=== PATIENT | male | born 1955 | race Caucasian/White ===

== ENCOUNTER 2017-11-23 13:38 | Emergency (ER) | payer MEDICARE, MEDICAID, SELFPAY ==
[2017-11-23 13:42] VITALS: BP 138/79; PULSE 85; RESP 15; TEMP 36.2; O2SAT 100; BMI 28.4
--- NOTE | 2017-11-23 14:51 | ED_ITS ---
HPI - Abdominal Pain <Tahira Zuleta PA-C - Last Filed: 11/23/17 20:48> General Chief Complaint: Abdominal Pain Stated Complaint: WHITE CHALKY STOOL COUPLE OF DAYS Time Seen by Provider: 11/23/17 14:49 Source: patient Mode of arrival: ambulatory Limitations: no limitations History of Present Illness HPI narrative: This 62-year-old male comes in due to 2 day history of a very light escobedo stool. He describes this as chalky. He denies any mucus or blood in the stool. He denies any abdominal pain, nausea, vomiting, or fever, but states that he feels slightly bloated. He states ?I feel perfect?. He states that 1 week ago, he and some friends had vomiting and diarrhea that just lasted a day or so and completely resolved. He has been back to his usual diet and activity. He denies any urinary symptoms or other new complaints on systems review, but is concerned about his gallbladder. Stool sample he produces is light brown/escobedo, solid, with patchy pasty discoloration Related Data Allergies Allergy/AdvReac Type Severity Reaction Status Date / Time No Known Allergies Allergy Uncoded 11/23/17 13:42 Review of Systems <Tahira Zuleta PA-C - Last Filed: 11/23/17 20:48> Review of Systems All systems reviewed & are unremarkable except as noted in HPI and below Exam <Tahira Zuleta PA-C - Last Filed: 11/23/17 20:48> Narrative Exam Narrative: GENERAL APPEARANCE: Patient sitting comfortably, in no distress. HEENT: PERRL, EOMI, no scleral icterus NECK: Supple LUNGS: Clear to auscultation bilaterally. HEART: Rate and rhythm regular, normal S1 and S2, no S3 or S4. ABDOMEN: Soft, nontender, nondistended, bowel sounds present x 4 quadrants, no masses palpable, no hepatosplenomegaly. EXTREMITIES: No edema, no cyanosis DERMATOLOGIC: No jaundice or exanthem NEUROLOGIC: Alert and oriented with normal speech and coordination Initial Vital Signs Initial Vital Signs: Vital Signs Temperature 97.2 F L 11/23/17 13:42 Pulse Rate 85 11/23/17 13:42 Respiratory Rate 15 11/23/17 13:42 Blood Pressure 138/79 H 11/23/17 13:42 Pulse Oximetry 100 11/23/17 13:42 <DO Joshua Pizarro Last Filed: 11/25/17 14:43> Initial Vital Signs Initial Vital Signs: Vital Signs Temperature 97.2 F L 11/23/17 13:42 Pulse Rate 85 11/23/17 13:42 Respiratory Rate 15 11/23/17 13:42 Blood Pressure 138/79 H 11/23/17 13:42 Pulse Oximetry 100 11/23/17 13:42 Course <CHETAN Hall Last Filed: 11/23/17 20:48> Orders Ordered: ED Orders 11/23/17 15:12 Complete Blood Count AUTO DIFF Stat Comprehensive Metabolic Panel Stat Lipase Stat Vital Signs - 8 hr 11/23/17 13:42 11/23/17 16:06 Temperature 97.2 F L Pulse Rate 85 77 Respiratory Rate 15 15 Blood Pressure 138/79 H Blood Pressure [Left Arm] 125/77 H Pulse Oximetry 100 97 <DO Joshua Pizarro Last Filed: 11/25/17 14:43> Orders Ordered: ED Orders 11/23/17 15:12 Complete Blood Count AUTO DIFF Stat Comprehensive Metabolic Panel Stat Lipase Stat Vital Signs - 8 hr 11/23/17 13:42 11/23/17 16:06 Temperature 97.2 F L Pulse Rate 85 77 Respiratory Rate 15 15 Blood Pressure 138/79 H Blood Pressure [Left Arm] 125/77 H Pulse Oximetry 100 97 MDM - Abdominal Pain <CHETAN Hall Last Filed: 11/23/17 20:48> Lab Data Attestation: I reviewed the patient's lab results. Result diagrams: 11/23/17 15:12 11/23/17 15:12 Lab Results 11/23/17 11/23/17 Range/Units 15:12 15:12 WBC 8.5 (4.5-11.0) X10^3/uL RBC 5.31 (4.5-5.9) X10^6/uL Hgb 15.9 (13.5-17.5) g/dL Hct 47.0 (41-53) % MCV 88.5 (80-100) fL MCH 30.0 (26-34) PG MCHC 33.9 (30-36) % RDW 13.2 (11.6-14.8) % Plt Count 184 (150-400) X10^3/uL Neut % (Auto) 72.0 (50-75) % Lymph % (Auto) 21.2 L (25-40) % [place] % (Auto) 5.7 (3-14) % Eos % (Auto) 0.7 L (2-4) % Baso % (Auto) 0.4 (0-2) % Neut # (Auto) 6100 H (0207-9201) /uL Sodium 145 (137-145) mmol/L Potassium 4.7 (3.4-5.1) mmol/L Chloride 109 H (98-107) mmol/L Carbon Dioxide 22 (22-32) mmol/L BUN 20 (9-20) mg/dL Creatinine 0.80 (0.66-1.25) mg/dL Estimated GFR > 60.0 (>60) mL/min BUN/Creatinine Ratio 25.0 H (6-22) Glucose 154 H (80-110) mg/dL Calcium 9.3 (8.4-10.2) mg/dL Total Bilirubin 0.5 (0.2-1.3) mg/dL AST 27 (17-59) IU/L ALT 53 (21-72) IU/L Alkaline Phosphatase 103 (38-126) U/L Total Protein 7.3 (6.3-8.2) g/dL Albumin 4.3 (3.5-5.0) g/dL Globulin 3.0 (1.7-4.1) g/dL Albumin/Globulin Ratio 1.4 (1.0-2.8) Lipase 44 (23-300) U/L <Beckie Stephens, DO - Last Filed: 11/25/17 14:43> Lab Data Lab Results 11/23/17 11/23/17 Range/Units 15:12 15:12 WBC 8.5 (4.5-11.0) X10^3/uL RBC 5.31 (4.5-5.9) X10^6/uL Hgb 15.9 (13.5-17.5) g/dL Hct 47.0 (41-53) % MCV 88.5 (80-100) fL MCH 30.0 (26-34) PG MCHC 33.9 (30-36) % RDW 13.2 (11.6-14.8) % Plt Count 184 (150-400) X10^3/uL Neut % (Auto) 72.0 (50-75) % Lymph % (Auto) 21.2 L (25-40) % [place] % (Auto) 5.7 (3-14) % Eos % (Auto) 0.7 L (2-4) % Baso % (Auto) 0.4 (0-2) % Neut # (Auto) 6100 H (9111-6809) /uL Sodium 145 (137-145) mmol/L Potassium 4.7 (3.4-5.1) mmol/L Chloride 109 H (98-107) mmol/L Carbon Dioxide 22 (22-32) mmol/L BUN 20 (9-20) mg/dL Creatinine 0.80 (0.66-1.25) mg/dL Estimated GFR > 60.0 (>60) mL/min BUN/Creatinine Ratio 25.0 H (6-22) Glucose 154 H (80-110) mg/dL Calcium 9.3 (8.4-10.2) mg/dL Total Bilirubin 0.5 (0.2-1.3) mg/dL AST 27 (17-59) IU/L ALT 53 (21-72) IU/L Alkaline Phosphatase 103 (38-126) U/L Total Protein 7.3 (6.3-8.2) g/dL Albumin 4.3 (3.5-5.0) g/dL Globulin 3.0 (1.7-4.1) g/dL Albumin/Globulin Ratio 1.4 (1.0-2.8) Lipase 44 (23-300) U/L Discharge Plan Departure Patient Disposition: Home, Self-Care Clinical Impression: Abnormal feces Discharge Date/Time: 11/23/17 16:40 Interventions: ED Discharge Assessment Last Done: 11/23/17 16:40 Activity Restrictions/Additional Instructions: There are no urgent findings on your blood work today, nor on your exam to suggest an acute gallbladder problem. Please monitor your stool for the next few days to see if it gets back to normal since you seem to have an intestinal virus last week. Stay on your usual diet. If not getting back to normal, please call your insurance for a referral to a primary care provider to do further testing. As we talked about, please return here if any acute symptoms such as fever or new pain in the interim <Beckie Stephens, - Last Filed: 11/25/17 14:43> Cosign ED Attending Dinahature Attestation: I was immediately available in the department for consultation. Documentation has been reviewed. I agree with assessment and plan.
[2017-11-23 15:27] LABS: Add Manual Diff / Slide Review NO; Basophils Percent Auto 0.4 % (0-2); Eosinophils Percent Auto 0.7 % (2-4); Hemoglobin 15.9 g/dL (13.5-17.5); Lymphocytes Percent Auto 21.2 % (25-40); Mean Corpuscular HGB Conc 33.9 % (30-36); Mean Corpuscular Volume 88.5 fL (80-100); Monocytes Percent Auto 5.7 % (3-14); Neutrophils Absolute Auto 6100 /uL (3000-5900); Platelet Count 184 X10^3/uL (150-400); Red Blood Cell Count 5.31 X10^6/uL (4.5-5.9); Red Cell Distribution Width 13.2 % (11.6-14.8); White Blood Cell Count 8.5 X10^3/uL (4.5-11.0)
[2017-11-23 15:37] LABS: Alanine Aminotransferase 53 IU/L (21-72); Albumin 4.3 g/dL (3.5-5.0); Albumin Globulin Ratio 1.4 (1.0-2.8); Alkaline Phosphatase 103 U/L (38-126); Aspartate Aminotransferase 27 IU/L (17-59); Bilirubin Total 0.5 mg/dL (0.2-1.3); Blood Urea Nitrogen 20 mg/dL (9-20); Calcium 9.3 mg/dL (8.4-10.2); Carbon Dioxide 22 mmol/L (22-32); Chloride 109 mmol/L (98-107); Estimated Glomerular Filt Rate > 60.0 mL/min (>60); Glucose 154 mg/dL (80-110); HEMOLYSIS 25 (0-50); Lipase 44 U/L (23-300); Potassium 4.7 mmol/L (3.4-5.1); Sodium 145 mmol/L (137-145); Total Protein 7.3 g/dL (6.3-8.2)
[2017-11-23 16:06] VITALS: BP 125/77; PULSE 77; RESP 15; O2SAT 97
== END 2017-11-23 16:40 | disposition home or self-care (01) ==
PROVIDERS: Emergency Provider Internal Medicine
DX: R19.5 Other fecal abnormalities (principal)
CPT/HCPCS: 80053; 83690; 85025; 99283

== ENCOUNTER 2018-03-18 15:40 | Emergency (ER) | payer MEDICARE, MEDICAID, SELFPAY ==
[2018-03-18 15:54] VITALS: BP 181/91; PULSE 93; RESP 18; TEMP 36.7; O2SAT 100
--- NOTE | 2018-03-18 16:03 | DI.RAD.S_ITS ---
PROCEDURE: XR CHEST 1V INDICATIONS: chest pain TECHNIQUE: One view of the chest was acquired. COMPARISON: [facility], , CHEST 2 VIEW, 01/31/2009, 13:58. FINDINGS: Surgical changes and devices: None. Lungs and pleura: No pleural effusions or pneumothorax. Lungs are clear. Mediastinum: Mediastinal contours appear normal. Heart size is normal. Bones and chest wall: No suspicious bony lesions. Overlying soft tissues appear unremarkable. IMPRESSION: No acute cardiopulmonary pathology. Dictated by: Mahad Moralez M.D. on 03/18/2018 at 16:26 Approved by: Mahad Moralez M.D. on 03/18/2018 at 16:30
[2018-03-18 16:17] VITALS: BP 154/114; PULSE 87; RESP 14; O2SAT 98
[2018-03-18 16:24] LABS: Add Manual Diff / Slide Review NO; Basophils Percent Auto 0.6 % (0-2); Eosinophils Percent Auto 0.1 % (2-4); Hematocrit 44.8 % (41-53); Hemoglobin 15.2 g/dL (13.5-17.5); Lymphocytes Percent Auto 14.8 % (25-40); Mean Corpuscular Hemoglobin 30.1 PG (26-34); Mean Corpuscular Volume 88.5 fL (80-100); Monocytes Percent Auto 4.7 % (3-14); Neutrophils Absolute Auto 8300 /uL (3000-5900); Neutrophils Percent Auto 79.8 % (50-75); Platelet Count 197 X10^3/uL (150-400); Red Blood Cell Count 5.06 X10^6/uL (4.5-5.9); Red Cell Distribution Width 13.4 % (11.6-14.8); White Blood Cell Count 10.4 X10^3/uL (4.5-11.0)
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
[2018-03-18 16:29] LABS: Prothrombin Time 11.4 SECONDS (10.1-12.7)
[2018-03-18 16:32] VITALS: BP 170/96; PULSE 84; RESP 17; O2SAT 100
[2018-03-18 16:32] LABS: Alanine Aminotransferase 34 IU/L (21-72); Albumin 4.5 g/dL (3.5-5.0); Albumin Globulin Ratio 1.6 (1.0-2.8); Alkaline Phosphatase 101 U/L (38-126); Aspartate Aminotransferase 24 IU/L (17-59); Bilirubin Total 0.4 mg/dL (0.2-1.3); Blood Urea Nitrogen 16 mg/dL (9-20); Calcium 9.2 mg/dL (8.4-10.2); Carbon Dioxide 22 mmol/L (22-32); Chloride 108 mmol/L (98-107); Creatine Kinase 160 U/L (55-170); Estimated Glomerular Filt Rate > 60.0 mL/min (>60); Globulin 2.8 g/dL (1.7-4.1); Glucose 111 mg/dL (80-110); HEMOLYSIS < 15 (0-50); Lipase 36 U/L (23-300); PTT Partial Thromboplastin Tim 24 SECONDS (26.4-36.2); Potassium 4.1 mmol/L (3.4-5.1); Sodium 144 mmol/L (137-145); Total Protein 7.3 g/dL (6.3-8.2)
--- NOTE | 2018-03-18 16:39 | PC.NURSE ---
patient reports episodes of left chest pain, causing him to be short of breath, at times gets light headed when he stands to fast
[2018-03-18 16:45] LABS: Troponin I < 0.012 ng/mL (0.01-0.034)
--- NOTE | 2018-03-18 16:46 | ED.CHESTPAIN ---
HPI - Chest Pain General Chief Complaint: Chest Pain Stated Complaint: HAVING A BREAK DOWN Time Seen by Provider: 03/18/18 16:10 Source: patient and other (friend) Mode of arrival: ambulatory Limitations: no limitations History of Present Illness HPI narrative: This is a 62-year-old male who comes to the emergency department with multiple complaints. Patient states he has been very stressed. He was in court today, he missed his actual court appearance according to his description Um and it was decided that he would be evicted from his current residence in 7-10 days. Patient has a history of schizoaffective dived disorder. He states that he no longer takes antipsychotics, he used to take Klonopin but he has been out since he was seeing his primary care doctor [facility] which was least 2 years ago. Patient states that over the past 3 months he has been having some symptoms that he describes as sometimes chest pain on the left side of his chest is an achy burning sensation. He denies any shortness of breath. It will occur when he thinks about all of the events leading up to today's situation. He states that when he is talking to people about this or use in that situation he will often stutter and be very scattered his thought process. He gets very anxious and feels that he is likely having panic attacks. He denies any diaphoresis with these episodes, no nausea no vomiting no syncope. He will occasionally feel lightheaded when he stands quickly but resolves on if he sits back down. He denies any changes to bowel movements or urination other than some difficulty with starting stream. Patient denies any prior cardiac history, he has not had a cardiac catheterization in the past. He has never been diagnosed with hypertension, dyslipidemia or diabetes. He is quite concerned about his living situation and does not have any follow-up with a counselor or psychiatrist nor the primary care physician currently. He is accompanied by a friend who helps him with his living situation. Related Data Previous Rx's Medication Instructions Recorded clonazepam [Klonopin] 0.5 mg PO TID PRN #5 tab 03/18/18 Allergies Allergy/AdvReac Type Severity Reaction Status Date / Time No Known Drug Allergies Allergy Verified 03/18/18 15:57 Review of Systems Review of Systems All systems reviewed & are unremarkable except as noted in HPI and below Cardiovascular Reports chest pain, Denies chest pain with activity, Denies diaphoresis, Denies syncope, Denies irregular heart rhythm, Denies lightheadedness, Denies radiating jaw, neck or arm pain, Denies palpitations, Denies dyspnea, Denies dyspnea on exertion and Denies orthopnea Respiratory Denies dyspnea and Denies dyspnea on exertion Gastrointestinal Gastrointestinal: Denies abdominal pain, Denies change in bowel habits, Denies diarrhea, Denies nausea and Denies vomiting Genitourinary Reports difficulty urinating (Chronically. Has taken medication for BPH) Musculoskeletal Denies back pain Neurologic Denies syncope and Reports memory loss (Chronic short-term memory loss) Psychiatric Reports anxiety, Denies auditory hallucinations, Reports memory loss (Chronic short-term memory loss), Reports panic attacks, Denies hallucinations, Denies homicidal ideation and Reports suicidal ideation Endocrine Denies palpitations [facility] Medical History BPH (benign prostatic hyperplasia) (Chronic) Mood disorder (Chronic) Schizophrenia (Chronic) Social History Smoking Status: Current some day smoker Exam Narrative Exam Narrative: GENERAL: Alert and oriented x three, well-nourished, well-appearing male in mild distress. Patient appears anxious. He occasionally stutters or has difficulty getting his words out HEENT: Head normocephalic, atraumatic, EOMI, pupils reactive, face symmetric, moist mucous membranes NECK: Supple, full range of motion CARDIOVASCULAR: Regular rate and rhythm without murmurs, rubs or gallops. RESPIRATORY: Breath sounds equal bilaterally, no wheezes rales or rhonchi. ABDOMEN: Soft, nontender. Normoactive bowel sounds all 4 quadrants. No guarding or rebound, rigidity, no mass : No CVA tenderness EXTREMITIES: Normal range of motion, no clubbing or edema. Neurovascularly intact NEUROLOGICAL: Cranial nerves II through XII grossly intact. Moving all extremities SKIN: Warm, dry, no petechiae, no rashes or lesions. PSYCH: Anxiety, denies hallucinations, denies homicidal thoughts, states he has intermittently had suicidal thoughts over the years when he is very stressed he is more likely to have them. He states he does not have any intention of harming himself. He states that he does have short term memory loss which has been a chronic issue. Initial Vital Signs Initial Vital Signs: Vital Signs Temperature 98.1 F 03/18/18 15:54 Pulse Rate 93 H 03/18/18 15:54 Respiratory Rate 18 03/18/18 15:54 Blood Pressure 181/91 H 03/18/18 15:54 Pulse Oximetry 100 03/18/18 15:54 Scores HEART Score Heart Score history: Slightly Suspicious Heart Score EKG: Non-Specific repolarization disturbance Heart Score Age: 45-64 years old Heart Score risk factors: No known risk factors Heart Score troponin: < or = to normal limit Heart Score Total: 2 Course Orders Ordered: ED Orders 03/18/18 16:03 XR chest 1V Stat EKG-12 Lead Stat 03/18/18 16:13 Complete Blood Count AUTO DIFF Stat Comprehensive Metabolic Panel Stat Lipase Stat Partial Thromboplastin Time Stat Prothrombin Time INR Stat Thyroid Stimulating Hormone Stat Troponin & CK Cardiac Panel Stat 03/18/18 17:30 Urine Drug Screen, Rapid Stat Discontinued Medications Aspirin (Aspirin Chew) 324 mg PO NOW ONE Stop: 03/18/18 17:01 Last Admin: 03/18/18 17:23 Dose: 324 mg Clonazepam (Klonopin) 0.5 mg PO NOW ONE Stop: 03/18/18 17:02 Last Admin: 03/18/18 17:27 Dose: 0.5 mg Clonazepam (Klonopin) 0.5 mg PO NOW ONE Stop: 03/18/18 18:51 Last Admin: 03/18/18 18:58 Dose: 0.5 mg Vital Signs - 8 hr 03/18/18 15:54 03/18/18 16:17 03/18/18 16:32 Temperature 98.1 F Pulse Rate 93 H 87 84 Respiratory Rate 18 14 17 Blood Pressure 181/91 H Blood Pressure [Right Arm] 154/114 H 170/96 H Pulse Oximetry 100 98 100 03/18/18 17:57 03/18/18 18:27 Temperature Pulse Rate 66 78 Respiratory Rate 24 13 Blood Pressure Blood Pressure [Right Arm] 156/83 H 164/96 H Pulse Oximetry 100 100 MDM - Chest Pain Lab Data Attestation: I reviewed the patient's lab results. Result diagrams: 03/18/18 16:13 03/18/18 16:13 Lab Results 03/18/18 03/18/18 03/18/18 Range/Units 16:13 16:13 16:13 WBC 10.4 (4.5-11.0) X10^3/uL RBC 5.06 (4.5-5.9) X10^6/uL Hgb 15.2 (13.5-17.5) g/dL Hct 44.8 (41-53) % MCV 88.5 (80-100) fL MCH 30.1 (26-34) PG MCHC 34.0 (30-36) % RDW 13.4 (11.6-14.8) % Plt Count 197 (150-400) X10^3/uL Neut % (Auto) 79.8 H (50-75) % Lymph % (Auto) 14.8 L (25-40) % [place] % (Auto) 4.7 (3-14) % Eos % (Auto) 0.1 L (2-4) % Baso % (Auto) 0.6 (0-2) % Neut # (Auto) 8300 H (6062-3756) /uL PT 11.4 (10.1-12.7) SECONDS INR 1.0 (0.9-1.3) APTT 24 L (26.4-36.2) SECONDS Sodium 144 (137-145) mmol/L Potassium 4.1 (3.4-5.1) mmol/L Chloride 108 H (98-107) mmol/L Carbon Dioxide 22 (22-32) mmol/L BUN 16 (9-20) mg/dL Creatinine 0.80 (0.66-1.25) mg/dL Estimated GFR > 60.0 (>60) mL/min BUN/Creatinine Ratio 20.0 (6-22) Glucose 111 H (80-110) mg/dL Calcium 9.2 (8.4-10.2) mg/dL Total Bilirubin 0.4 (0.2-1.3) mg/dL AST 24 (17-59) IU/L ALT 34 (21-72) IU/L Alkaline Phosphatase 101 (38-126) U/L Total Creatine Kinase 160 (55-170) U/L CK-MB (CK-2) 1.33 (<2.37) ng/mL CK-MB (CK-2) Rel Index 0.8 L (1.5-5.0) % Troponin I < 0.012 (0.01-0.034) ng/mL Total Protein 7.3 (6.3-8.2) g/dL Albumin 4.5 (3.5-5.0) g/dL Globulin 2.8 (1.7-4.1) g/dL Albumin/Globulin Ratio 1.6 (1.0-2.8) Lipase 36 (23-300) U/L TSH (0.47-4.68) uIU/mL Urine Opiates Screen (Negative) Ur Oxycodone Screen (Negative) Urine Methadone Screen (Negative) Ur Barbiturates Screen (Negative) U Tricyclic Antidepress (Negative) Ur Phencyclidine Scrn (Negative) Ur Amphetamines Screen (Negative) U Methamphetamines Scrn (Negative) Ur MDMA Scrn (Ecstasy) (Negative) U Benzodiazepines Scrn (Negative) Urine Cocaine Screen (Negative) U Marijuana (THC) Screen (Negative) 03/18/18 03/18/18 Range/Units 16:13 17:30 WBC (4.5-11.0) X10^3/uL RBC (4.5-5.9) X10^6/uL Hgb (13.5-17.5) g/dL Hct (41-53) % MCV (80-100) fL MCH (26-34) PG MCHC (30-36) % RDW (11.6-14.8) % Plt Count (150-400) X10^3/uL Neut % (Auto) (50-75) % Lymph % (Auto) (25-40) % [place] % (Auto) (3-14) % Eos % (Auto) (2-4) % Baso % (Auto) (0-2) % Neut # (Auto) (0659-9452) /uL PT (10.1-12.7) SECONDS INR (0.9-1.3) APTT (26.4-36.2) SECONDS Sodium (137-145) mmol/L Potassium (3.4-5.1) mmol/L Chloride (98-107) mmol/L Carbon Dioxide (22-32) mmol/L BUN (9-20) mg/dL Creatinine (0.66-1.25) mg/dL Estimated GFR (>60) mL/min BUN/Creatinine Ratio (6-22) Glucose (80-110) mg/dL Calcium (8.4-10.2) mg/dL Total Bilirubin (0.2-1.3) mg/dL AST (17-59) IU/L ALT (21-72) IU/L Alkaline Phosphatase (38-126) U/L Total Creatine Kinase (55-170) U/L CK-MB (CK-2) (<2.37) ng/mL CK-MB (CK-2) Rel Index (1.5-5.0) % Troponin I (0.01-0.034) ng/mL Total Protein (6.3-8.2) g/dL Albumin (3.5-5.0) g/dL Globulin (1.7-4.1) g/dL Albumin/Globulin Ratio (1.0-2.8) Lipase (23-300) U/L TSH 1.37 (0.47-4.68) uIU/mL Urine Opiates Screen Negative (Negative) Ur Oxycodone Screen Negative (Negative) Urine Methadone Screen Negative (Negative) Ur Barbiturates Screen Negative (Negative) U Tricyclic Antidepress Negative (Negative) Ur Phencyclidine Scrn Negative (Negative) Ur Amphetamines Screen Negative (Negative) U Methamphetamines Scrn Negative (Negative) Ur MDMA Scrn (Ecstasy) Negative (Negative) U Benzodiazepines Scrn Negative (Negative) Urine Cocaine Screen Negative (Negative) U Marijuana (THC) Screen Negative (Negative) Imaging Data Chest x-ray: Radiologist's impression: [address] [id number] XRay Report Signed Patient: Goldy Powell [facility]#: [id number] : 5Acct:[id number] Age/Sex: 62 / MDate of Service: 03/18/18 Loc: ED Accession Number: [id number] Procedure: XR chest 1V Ordering Provider: Snehal Vasquez D.O. PROCEDURE: XR CHEST 1V INDICATIONS: chest pain TECHNIQUE: One view of the chest was acquired. COMPARISON: [facility], CHEST 2 VIEW, 01/31/2009, 13:58. FINDINGS: Surgical changes and devices: None. Lungs and pleura: No pleural effusions or pneumothorax. Lungs are clear. Mediastinum: Mediastinal contours appear normal. Heart size is normal. Bones and chest wall: No suspicious bony lesions. Overlying soft tissues appear unremarkable. IMPRESSION: No acute cardiopulmonary pathology. Dictated by: Mahad Moralez M.D. on 03/18/2018 at 16:26 Approved by: Mahad Moralez M.D. on 03/18/2018 at 16:30 ECG Data Attestation: I personally reviewed and interpreted this ECG as follows: Interpretation: Sinus rhythm ST depression V4 V5, rate of 97, P are 145, QRS is 78 QTC of 386. MDM Narrative Medical decision making narrative: This is a 62-year-old male who comes in with multiple complaints. He states his main concern is he is having a breakdown secondary to some social issues. I had a long discussion he has come up with some alternative solutions. Patient been having chest pain intermittently that is burning in sensation on the left side. Does have some EKG changes but his sensation always starts when he is stressed does not seem to be an anginal equivalent during discussion and evaluation. Based on the timing of his sensations he has had 6 hr since onset. We did discuss patient's lab work, EKG and chest x-ray. Plan for patient to get set up for follow-up with primary care so he has regular evaluations. Um to get him reestablished with medications. As well as a next day appointment with [facility] through the [facility] team. He does feel safe on his own of and with his roommate. He does not wish to harm himself, contracts for safety and does not feel that he needs to be placed in voluntary facility. Discharge Plan Departure Patient Disposition: Home Clinical Impression: Atypical chest pain, Anxiety Discharge Date/Time: 03/18/18 19:10 Interventions: ED Discharge Assessment Last Done: 03/18/18 19:09 Instructions: DI for Atypical Chest Pain Activity Restrictions/Additional Instructions: Follow-up with primary care in the next 3-5 days for recheck. Call for an appointment. Take medication as prescribed, this medication can make you sleepy do not drive, perform hazards activities or make any major decisions while taking it you will need to refill all future prescriptions through your primary care service. You may contact this the [facility] team for next day appointment, call the suicide hotline number this is the same number used to make an appointment or follow-up. If you feel you need to go to [facility]. Call had of time ([phone]) to inquire about an available bed. If you're feeling suicidal or having suicidal thoughts, contact the suicide hotline: . General Return Instructions : Return to the Emergency Department for any new or worsening symptoms. Return to the Emergency Department for fevers, severe abdominal pain, chest pain, shortness of breath, passing out, persistent vomiting, worrisome rash, or any other new or worsening symptoms. Prescriptions: New clonazepam [Klonopin] 0.5 mg tablet 0.5 mg PO TID PRN (Reason: anxiety) Qty: 5 RF: 0 Referrals: [facility] [Provider Group] [facility] [Provider Group] [facility] [Provider Group]
[2018-03-18 16:48] LABS: CKMB % Relative Index 0.8 % (1.5-5.0); Creatine Kinase MB 1.33 ng/mL (<2.37)
[2018-03-18 17:17] LABS: Thyroid Stimulating Hormone 1.37 uIU/mL (0.47-4.68)
[2018-03-18] MEDS: ASPIRIN 81 MG TAB 324 MG PO (17:23)
[2018-03-18] MEDS: clonazePAM 0.5 MG TABLET PO ×2 (17:27→18:58)
[2018-03-18 17:57] VITALS: BP 156/83; PULSE 66; RESP 24; O2SAT 100
--- NOTE | 2018-03-18 18:12 | PC.NURSE ---
spoke with crisis line to make emergency next day appt. since today is wednesday they will follow through with patient via telephone over the weekend, then will make next day appt on wednesday for wednesday.
[2018-03-18 18:27] VITALS: BP 164/96; PULSE 78; RESP 13; O2SAT 100
[2018-03-18 18:27] LABS: Urine Amphetamines Negative (Negative); Urine Barbiturates Negative (Negative); Urine Benzodiazepines Negative (Negative); Urine Cocaine Negative (Negative); Urine MDMA Negative (Negative); Urine Methadone Negative (Negative); Urine Methamphetamines Negative (Negative); Urine Morphine/Opi cutoff 2000 Negative (Negative); Urine Oxycodone Negative (Negative); Urine Phencyclidine Negative (Negative); Urine Tetrahydrocannabinol Negative (Negative); Urine Tricyclic Antidepressant Negative (Negative)
--- NOTE | 2018-03-21 13:52 | PC.NURSE ---
Called number listed for follow up. No answer.
== END 2018-03-18 19:10 | disposition home or self-care (01) ==
PROVIDERS: Emergency Provider Emergency Medicine
DX: F41.9 Anxiety disorder, unspecified (principal); R07.89 Other chest pain
CPT/HCPCS: 36591; 71045; 80053; 80305; 82550; 82553; 83690; 84443; 84484; 85025; 85610; 85730; 93005; 93010; 99283; 99285

== ENCOUNTER 2018-05-21 15:33 | Emergency (ER) | payer MEDICARE, MEDICAID, SELFPAY ==
[2018-05-21 15:42] VITALS: BP 148/85; PULSE 84; RESP 18; TEMP 36.6; O2SAT 100; BMI 29.4
--- NOTE | 2018-05-21 16:18 | ED.CHESTPAIN ---
HPI - Chest Pain General Chief Complaint: Chest Pain Stated Complaint: states hot burning upper left chest,shoulder Time Seen by Provider: 05/21/18 16:18 Related Data Previous Rx's Medication Instructions Recorded clonazepam [Klonopin] 0.5 mg PO TID PRN #5 tab 03/18/18 Allergies Allergy/AdvReac Type Severity Reaction Status Date / Time No Known Drug Allergies Allergy Verified 03/18/18 15:57 PFSH Social History Smoking Status: Current every day smoker Exam Initial Vital Signs Initial Vital Signs: Vital Signs Temperature 97.8 F 05/21/18 15:42 Pulse Rate 84 05/21/18 15:42 Respiratory Rate 18 05/21/18 15:42 Blood Pressure 148/85 H 05/21/18 15:42 Pulse Oximetry 100 05/21/18 15:42 Course Orders Ordered: ED Orders 05/21/18 15:47 EKG-12 Lead Stat Vital Signs - 8 hr 05/21/18 15:42 Temperature 97.8 F Pulse Rate 84 Respiratory Rate 18 Blood Pressure 148/85 H Pulse Oximetry 100 Discharge Plan Departure Prescriptions: No Action clonazepam [Klonopin] 0.5 mg tablet 0.5 mg PO TID PRN (Reason: anxiety) Qty: 5 RF: 0
--- NOTE | 2018-05-21 16:41 | DI.RAD.S_ITS ---
PROCEDURE: XR CHEST 1V INDICATIONS: chest pain TECHNIQUE: One view of the chest was acquired. COMPARISON: [facility], CR, XR CHEST 1V, 03/18/2018, 16:07. FINDINGS: Surgical changes and devices: None. Lungs and pleura: No pleural effusions or pneumothorax. Lungs are abnormal with a retrocardiac left lower lobe pneumonia. Mediastinum: Mediastinal contours appear normal. Heart size is normal. Bones and chest wall: No suspicious bony lesions. Overlying soft tissues appear unremarkable. IMPRESSION: Retrocardiac left lower lobe pneumonia without pleural effusion seen. Dictated by: Homero Brown M.D. on 05/21/2018 at 17:13 Approved by: Homero Brown M.D. on 05/21/2018 at 17:13
--- NOTE | 2018-05-21 16:54 | ED.CHESTPAIN ---
HPI - Chest Pain General Chief Complaint: Chest Pain Stated Complaint: states hot burning upper left chest,shoulder Time Seen by Provider: 05/21/18 16:18 Source: patient Mode of arrival: ambulatory Limitations: no limitations History of Present Illness HPI narrative: Patient is a 62-year-old male here for evaluation of left-sided chest burning and also radiating to his left shoulder. He states that it has been going on for ?weeks? he states that it is off and on. Not worse with breathing. Not worse with palpation or movement. Not coughing. No fevers. Patient states that he looked his symptoms up on the Internet and told him that he had pericarditis. He is concerned about pericarditis. Related Data Previous Rx's Medication Instructions Recorded clonazepam [Klonopin] 0.5 mg PO TID PRN #5 tab 03/18/18 Allergies Allergy/AdvReac Type Severity Reaction Status Date / Time No Known Drug Allergies Allergy Verified 03/18/18 15:57 Review of Systems Constitutional Denies fever(s) Cardiovascular Reports chest pain, Denies edema and Denies dyspnea Comments: Pain to left shoulder Respiratory Denies cough and Denies dyspnea Gastrointestinal Gastrointestinal: Denies abdominal pain, Denies nausea and Denies vomiting Genitourinary Denies dysuria Musculoskeletal Denies myalgias and Denies arthralgias Integumentary/Breasts Denies rash Hematologic/Lymphatic Comments: Not on anticoagulation [facility] Social History Smoking Status: Current every day smoker Exam Initial Vital Signs Initial Vital Signs: Vital Signs Temperature 97.8 F 05/21/18 15:42 Pulse Rate 84 05/21/18 15:42 Respiratory Rate 18 05/21/18 15:42 Blood Pressure 148/85 H 05/21/18 15:42 Pulse Oximetry 100 05/21/18 15:42 Const General: cooperative, healthy appearing, comfortable, well developed, well groomed and No acute distress Orientation: alert, awake and oriented x3 HENMT Head: normal to inspection Chest Chest: normal inspection of the chest Breast inspection: normal inspection of the breasts Resp Effort & Inspection: normal respiratory effort Auscultation: clear to auscultation bilaterally Cardio Rate: regular rate Rhythm: regular rhythm Heart Sounds: no murmurs Pulses: radial pulses present GI Inspection: non-distended Palpation: soft Skin General: no rashes or lesions noted Neuro General: alert and awake Extrem General: normal to inspection, capillary refill normal and No edema Psych Appearance: grossly normal and well kempt Course Orders Ordered: ED Orders 05/21/18 15:47 EKG-12 Lead Stat 05/21/18 16:41 XR chest 1V Stat 05/21/18 16:55 Basic Metabolic Panel Stat Complete Blood Count AUTO DIFF Stat Troponin I Stat Vital Signs - 8 hr 05/21/18 15:42 05/21/18 17:10 05/21/18 18:00 Temperature 97.8 F Pulse Rate 84 77 78 Respiratory Rate 18 15 22 Blood Pressure 148/85 H Blood Pressure [Left Arm] 135/76 Pulse Oximetry 100 98 97 MDM - Chest Pain Lab Data Attestation: I reviewed the patient's lab results. Result diagrams: 05/21/18 16:55 05/21/18 16:55 Lab Results 05/21/18 05/21/18 Range/Units 16:55 16:55 WBC 7.9 (4.5-11.0) X10^3/uL RBC 5.02 (4.5-5.9) X10^6/uL Hgb 15.2 (13.5-17.5) g/dL Hct 44.2 (41-53) % MCV 88.0 (80-100) fL MCH 30.4 (26-34) PG MCHC 34.5 (30-36) % RDW 13.3 (11.6-14.8) % Plt Count 188 (150-400) X10^3/uL Neut % (Auto) 63.5 (50-75) % Lymph % (Auto) 28.1 (25-40) % [place] % (Auto) 6.8 (3-14) % Eos % (Auto) 1.0 L (2-4) % Baso % (Auto) 0.6 (0-2) % Neut # (Auto) 5000 (7009-0436) /uL Sodium 142 (137-145) mmol/L Potassium 4.4 (3.4-5.1) mmol/L Chloride 109 H (98-107) mmol/L Carbon Dioxide 22 (22-32) mmol/L BUN 18 (9-20) mg/dL Creatinine 0.80 (0.66-1.25) mg/dL Estimated GFR > 60.0 (>60) mL/min BUN/Creatinine Ratio 22.5 H (6-22) Glucose 112 H (80-110) mg/dL Calcium 9.3 (8.4-10.2) mg/dL Troponin I 0.019 (0.01-0.034) ng/mL Imaging Data Chest x-ray: Radiologist's impression: PROCEDURE: XR CHEST 1V INDICATIONS: chest pain TECHNIQUE: One view of the chest was acquired. COMPARISON: [facility], , XR CHEST 1V, 03/18/2018, 16:07. FINDINGS: Surgical changes and devices: None. Lungs and pleura: No pleural effusions or pneumothorax. Lungs are abnormal with a retrocardiac left lower lobe pneumonia. Mediastinum: Mediastinal contours appear normal. Heart size is normal. Bones and chest wall: No suspicious bony lesions. Overlying soft tissues appear unremarkable. IMPRESSION: Retrocardiac left lower lobe pneumonia without pleural effusion seen. Dictated by: Homero Brown M.D. on 05/21/2018 at 17:13 ECG Data Attestation: I personally reviewed and interpreted this ECG as follows: Prior ECG tracings: not available for review Interpretation: Sinus rhythm Ventricular rate is 76 Normal QRS Normal QTC No ST T wave changes MDM Narrative Medical decision making narrative: Patient has had a week of symptoms. Workup here in the emergency department unremarkable. Patient clinically does not have pneumonia. He has a clear lung exam, has not had any fevers has not had any cough. Despite the chest x-ray findings I feel like pneumonia is less likely clinically so I will hold on antibiotics for now. Feel that his symptoms are less likely ACS. No EKG findings concerning for pericarditis. His exam is not consistent with pericarditis. I did discuss this with the patient. Unsure as the exact etiology of his symptoms however I feel that admission to the hospital was on warranted. No indication for antibiotics. I did discuss this with the patient. Was given return precautions. He expressed understanding and agreement with plan. Discharge Plan Departure Patient Disposition: Home Clinical Impression: Atypical chest pain Instructions: DI for Atypical Chest Pain Activity Restrictions/Additional Instructions: I do recommend that you may contact with the primary care doctor. Continue all of your medications as directed. Return to the emergency department for any new or worsening symptoms Prescriptions: No Action clonazepam [Klonopin] 0.5 mg tablet 0.5 mg PO TID PRN (Reason: anxiety) Qty: 5 RF: 0
[2018-05-21 17:08] LABS: Add Manual Diff / Slide Review NO; Basophils Percent Auto 0.6 % (0-2); Hematocrit 44.2 % (41-53); Hemoglobin 15.2 g/dL (13.5-17.5); Lymphocytes Percent Auto 28.1 % (25-40); Mean Corpuscular HGB Conc 34.5 % (30-36); Mean Corpuscular Hemoglobin 30.4 PG (26-34); Monocytes Percent Auto 6.8 % (3-14); Neutrophils Absolute Auto 5000 /uL (1500-7000); Neutrophils Percent Auto 63.5 % (50-75); Platelet Count 188 X10^3/uL (150-400); Red Blood Cell Count 5.02 X10^6/uL (4.5-5.9); Red Cell Distribution Width 13.3 % (11.6-14.8); White Blood Cell Count 7.9 X10^3/uL (4.5-11.0)
[2018-05-21 17:10] VITALS: BP 135/76; PULSE 77; RESP 15; O2SAT 98
[2018-05-21 17:25] LABS: BUN Creatinine Ratio 22.5 (6-22); Blood Urea Nitrogen 18 mg/dL (9-20); Calcium 9.3 mg/dL (8.4-10.2); Carbon Dioxide 22 mmol/L (22-32); Chloride 109 mmol/L (98-107); Estimated Glomerular Filt Rate > 60.0 mL/min (>60); Glucose 112 mg/dL (80-110); HEMOLYSIS < 15 (0-50); Potassium 4.4 mmol/L (3.4-5.1); Sodium 142 mmol/L (137-145)
[2018-05-21 17:37] LABS: Troponin I 0.019 ng/mL (0.01-0.034)
[2018-05-21 18:00] VITALS: PULSE 78; RESP 22; O2SAT 97
[2018-05-21 18:51] VITALS: BP 147/84; PULSE 73; RESP 16; O2SAT 97
== END 2018-05-21 18:53 | disposition home or self-care (01) ==
PROVIDERS: Emergency Provider Emergency Medicine
DX: R07.89 Other chest pain (principal)
CPT/HCPCS: 71045; 80048; 84484; 85025; 93005; 99283; 99285

== ENCOUNTER 2018-07-20 16:16 | Emergency (ER) | payer MEDICARE, MEDICAID, SELFPAY ==
[2018-07-20] MEDS: ASPIRIN 81 MG TAB 324 MG PO (16:22)
[2018-07-20 16:23] VITALS: BP 139/77; PULSE 82; RESP 18; TEMP 36; O2SAT 100; BMI 29.0
--- NOTE | 2018-07-20 16:29 | DI.RAD.S_ITS ---
PROCEDURE: XR CHEST 1V INDICATIONS: Chest pain. TECHNIQUE: One view of the chest was acquired. COMPARISON: [facility], CR, XR CHEST 1V, 05/21/2018, 17:04. FINDINGS: Surgical changes and devices: None. Lungs and pleura: Lungs are clear. No pleural effusions or pneumothorax. Mediastinum: Mediastinal contours appear normal. Heart size is normal. Bones and chest wall: No suspicious bony lesions. Overlying soft tissues appear unremarkable. IMPRESSION: Negative chest. No acute cardiopulmonary process is evident. Dictated by: Gabriele House M.D. on 07/20/2018 at 15:47 Approved by: Gabriele House M.D. on 07/20/2018 at 15:48
--- NOTE | 2018-07-20 16:30 | ED.CHESTPAIN ---
HPI - Chest Pain General Chief Complaint: Chest Pain Stated Complaint: lt arm pain, sweating Time Seen by Provider: 07/20/18 16:30 Source: patient Mode of arrival: ambulatory Limitations: no limitations History of Present Illness HPI narrative: This is a 62-year-old male comes in with complaint of chest pain he states that it started about 15 min ago. Sort of in the left upper chest he states that it radiates down his arm and up into the left side of his neck. patient denies any shortness of breath currently but feels nauseated. He has not had any vomiting. Patient has not been sweaty but does not feel well. He relates this all to stress which he relates to happening about 3 months ago. He states he has sort had symptoms like this on and off but they have not lasted this long. He smokes tobacco but denies any other major medical issues such as coronary artery disease, hypertension dyslipidemia or diabetes. He does take Klonopin for anxiety intermittently. He denies any prior surgeries, denies any allergies. He states that multiple male family members have had cardiac disease. He last saw primary care physician several years ago who was Dr. Chairez. Related Data Previous Rx's Medication Instructions Recorded clonazepam [Klonopin] 0.5 mg PO TID PRN #5 tab 03/18/18 Allergies Allergy/AdvReac Type Severity Reaction Status Date / Time No Known Drug Allergies Allergy Verified 07/20/18 16:23 Review of Systems Review of Systems ROS Unobtainable: All systems reviewed & are unremarkable except as noted in HPI and below Constitutional Denies chills, Reports fatigue, Denies fever(s), Denies lethargy and Denies weakness Cardiovascular Reports chest pain, Reports chest pain at rest, Reports chest pain with activity, Denies syncope, Denies irregular heart rhythm, Denies lightheadedness, Reports radiating jaw, neck or arm pain, Denies palpitations, Denies dyspnea, Denies dyspnea on exertion and Denies orthopnea Respiratory Denies cough, Denies dyspnea, Denies dyspnea on exertion and Denies wheezing Gastrointestinal Gastrointestinal: Denies abdominal pain, Denies change in bowel habits, Reports nausea and Denies vomiting Neurologic Denies syncope and Denies weakness Endocrine Reports fatigue and Denies palpitations Allergic/Immunologic Denies wheezing [facility] Social History Smoking Status: Current every day smoker Exam Narrative Exam Narrative: GENERAL: Alert and oriented x three, well-nourished male in moderate distress. Patient appears uncomfortable. HEENT: Head normocephalic, atraumatic, EOMI, pupils reactive, face symmetric, moist mucous membranes NECK: Supple, full range of motion CARDIOVASCULAR: Regular rate and rhythm without murmurs, rubs or gallops. RESPIRATORY: Breath sounds equal bilaterally, no wheezes rales or rhonchi. ABDOMEN: Soft, nontender. Normoactive bowel sounds all 4 quadrants. No guarding or rebound, rigidity, no mass : No CVA tenderness EXTREMITIES: Normal range of motion, no clubbing or edema. 2+ pulses bilateral upper extremities. Neurovascularly intact NEUROLOGICAL: Cranial nerves II through XII grossly intact. Moving all extremities SKIN: Warm, dry, no petechiae, no rashes or lesions. Initial Vital Signs Initial Vital Signs: Vital Signs Temperature 96.8 F L 07/20/18 16:23 Pulse Rate 82 07/20/18 16:23 Respiratory Rate 18 07/20/18 16:23 Blood Pressure 139/77 07/20/18 16:23 Pulse Oximetry 100 07/20/18 16:23 Course Orders Ordered: ED Orders 07/20/18 16:21 EKG-12 Lead Stat 07/20/18 16:29 XR chest 1V Stat 07/20/18 16:32 Complete Blood Count AUTO DIFF Stat Comprehensive Metabolic Panel Stat Lipase Stat Troponin & CK Cardiac Panel Stat Sodium Chloride (Normal Saline 0.9%) 1,000 mls @ 150 mls/hr IV CONT ELKE Last Admin: 07/20/18 16:41 Dose: 150 mls/hr Heparin Sodium/Dextrose (Heparin Drip) 25,000 unit in 500 mls @ 22.08 mls/hr IV CONT ELKE; Protocol Last Admin: 07/20/18 16:35 Dose: 12 units/kg/hr, 22.08 mls/hr Nitroglycerin (Nitrostat) 0.4 mg SL [id number] PRN PRN Reason: Chest Pain Last Admin: 07/20/18 16:31 Dose: 0.4 mg Discontinued Medications Aspirin (Aspirin Chew) 324 mg PO NOW ONE Stop: 07/20/18 16:30 Last Admin: 07/20/18 16:22 Dose: 324 mg Aspirin (Aspirin Chew) 324 mg PO NOW ONE Stop: 07/20/18 16:32 Last Admin: 07/20/18 16:43 Dose: Not Given Heparin Sodium (Porcine) (Heparin) 5,000 unit IV NOW ONE Stop: 07/20/18 16:31 Last Admin: 07/20/18 16:34 Dose: 5,000 unit Vital Signs - 8 hr 07/20/18 16:23 07/20/18 16:31 07/20/18 16:38 Temperature 96.8 F L Pulse Rate 82 81 40 L Respiratory Rate 18 Blood Pressure 139/77 139/79 Blood Pressure [Left Arm] 86/31 L Pulse Oximetry 100 98 07/20/18 16:45 Temperature Pulse Rate 84 Respiratory Rate 16 Blood Pressure Blood Pressure [Left Arm] 93/61 Pulse Oximetry MDM - Chest Pain Lab Data Attestation: I reviewed the patient's lab results. Result diagrams: 07/20/18 16:32 07/20/18 16:32 Lab Results 07/20/18 07/20/18 Range/Units 16:32 16:32 WBC 11.6 H (4.5-11.0) X10^3/uL RBC 5.40 (4.5-5.9) X10^6/uL Hgb 16.0 (13.5-17.5) g/dL Hct 48.4 (41-53) % MCV 89.5 (80-100) fL MCH 29.7 (26-34) PG MCHC 33.2 (30-36) % RDW 13.7 (11.6-14.8) % Plt Count 215 (150-400) X10^3/uL Neut % (Auto) 65.8 (50-75) % Lymph % (Auto) 25.1 (25-40) % [place] % (Auto) 8.1 (3-14) % Eos % (Auto) 0.2 L (2-4) % Baso % (Auto) 0.8 (0-2) % Neut # (Auto) 7600 H (8576-1029) /uL Lymph # (Auto) 2900 (0057-3681) /uL [place] # (Auto) 900 (0-900) /uL Eos # (Auto) 0 (0-450) /uL Baso # (Auto) 100 (0-100) /uL Sodium 140 (137-145) mmol/L Potassium 3.9 (3.4-5.1) mmol/L Chloride 106 (98-107) mmol/L Carbon Dioxide 23 (22-32) mmol/L BUN 17 (9-20) mg/dL Creatinine 0.90 (0.66-1.25) mg/dL Estimated GFR > 60.0 (>60) mL/min BUN/Creatinine Ratio 18.9 (6-22) Glucose 110 (80-110) mg/dL Calcium 9.2 (8.4-10.2) mg/dL Total Bilirubin 0.6 (0.2-1.3) mg/dL AST 29 (17-59) IU/L ALT 38 (21-72) IU/L Alkaline Phosphatase 87 (38-126) U/L Total Creatine Kinase 286 H (55-170) U/L CK-MB (CK-2) 3.11 H (<2.37) ng/mL CK-MB (CK-2) Rel Index 1.1 L (1.5-5.0) % Troponin I < 0.012 (0.01-0.034) ng/mL Total Protein 7.5 (6.3-8.2) g/dL Albumin 4.5 (3.5-5.0) g/dL Globulin 3.0 (1.7-4.1) g/dL Albumin/Globulin Ratio 1.5 (1.0-2.8) Lipase 46 (23-300) U/L Pending labs. Imaging Data Chest x-ray: Attestation: I personally reviewed and interpreted this imaging study as follows: My impression: No pneumothorax, no mediastinal widening, the no infiltrate. Normal bony alignment. ECG Data Attestation: I personally reviewed and interpreted this ECG as follows: Prior ECG tracings: available for review Interpretation: EKG shows ST elevation in 2 3 and AVF with reciprocal depression in 1 and aVL as well as in V2. Patient has prior EKG which does not show this. MDM Narrative Medical decision making narrative: Patient has new ST elevation in the setting of chest pain. patient was given aspirin 324 mg here in the department, 5000 unit heparin bolus. Patient was given 1 dose of nitro sublingual this dropped his blood pressure he got very lightheaded and presyncopal and 1 L of fluids was started and no further nitro sublingual was given. patient states his chest pain is feeling better afterwards. Included is a prior EKG from 03/18/2018 for comparison which does not show any ST changes. Patient's chest x-ray today does not show any mediastinal widening. Dr. Candelaria at [facility] is the accepting physician. EKG was faxed at have patient. Critical Care Time Critical Care Time: Yes Total Critical Care Time: 25 Attestation: The high probability of a clinically significant, sudden or life threatening deterioration of the [cardiac] system(s) required my full and direct attention, intervention and personal management. The aggregate critical care time was [25] minutes. This time is in addition to time spent performing reported procedures but includes the following: [x] Data Review and interpretation [x] Patient assessment and monitoring of vital signs [x] Documentation [] Medication orders and management Discharge Plan Departure Patient Disposition: [facility] Clinical Impression: ST elevation (STEMI) myocardial infarction Qualifiers: Involved coronary artery: unspecified coronary artery Qualified Code(s): I21.3 - ST elevation (STEMI) myocardial infarction of unspecified site Prescriptions: No Action clonazepam [Klonopin] 0.5 mg tablet 0.5 mg PO TID PRN (Reason: anxiety) Qty: 5 RF: 0
[2018-07-20 16:31] VITALS: BP 139/79; PULSE 81
[2018-07-20] MEDS: NITROGLYCERIN 0.4 MG SL TAB SL (16:31)
[2018-07-20] MEDS: HEPARIN 5,000 UNIT/ML VIAL 5000 UNIT IV (16:34)
[2018-07-20] MEDS: HEPARIN DRIP 25,000 UNIT/500 ML IV.SOLN 22.08 UNIT IV (16:35)
[2018-07-20 16:38] VITALS: BP 86/31; PULSE 40; O2SAT 98
[2018-07-20 16:39] LABS: Add Manual Diff / Slide Review NO; Basophils Absolute Auto 100 /uL (0-100); Basophils Percent Auto 0.8 % (0-2); Eosinophils Absolute Auto 0 /uL (0-450); Eosinophils Percent Auto 0.2 % (2-4); Hematocrit 48.4 % (41-53); Lymphocytes Absolute Auto 2900 /uL (1100-4500); Lymphocytes Percent Auto 25.1 % (25-40); Mean Corpuscular HGB Conc 33.2 % (30-36); Mean Corpuscular Hemoglobin 29.7 PG (26-34); Mean Corpuscular Volume 89.5 fL (80-100); Monocytes Absolute Auto 900 /uL (0-900); Monocytes Percent Auto 8.1 % (3-14); Neutrophils Absolute Auto 7600 /uL (1500-7000); Neutrophils Percent Auto 65.8 % (50-75); Platelet Count 215 X10^3/uL (150-400); Red Cell Distribution Width 13.7 % (11.6-14.8); White Blood Cell Count 11.6 X10^3/uL (4.5-11.0)
[2018-07-20] MEDS: SODIUM CHLORIDE 0.9% 1,000 ML 150 ML IV (16:41)
[2018-07-20 16:45] VITALS: BP 93/61; PULSE 84; RESP 16
--- NOTE | 2018-07-20 16:53 | PC.NURSE ---
pt ekg reveals STEMI. dr. lowe notified.
[2018-07-20 16:58] LABS: Alanine Aminotransferase 38 IU/L (21-72); Albumin 4.5 g/dL (3.5-5.0); Albumin Globulin Ratio 1.5 (1.0-2.8); Alkaline Phosphatase 87 U/L (38-126); Aspartate Aminotransferase 29 IU/L (17-59); BUN Creatinine Ratio 18.9 (6-22); Bilirubin Total 0.6 mg/dL (0.2-1.3); Blood Urea Nitrogen 17 mg/dL (9-20); Calcium 9.2 mg/dL (8.4-10.2); Carbon Dioxide 23 mmol/L (22-32); Chloride 106 mmol/L (98-107); Creatine Kinase 286 U/L (55-170); Estimated Glomerular Filt Rate > 60.0 mL/min (>60); Glucose 110 mg/dL (80-110); HEMOLYSIS 32 (0-50); Lipase 46 U/L (23-300); Potassium 3.9 mmol/L (3.4-5.1); Sodium 140 mmol/L (137-145); Total Protein 7.5 g/dL (6.3-8.2)
--- NOTE | 2018-07-20 17:00 | PC.NURSE ---
pt had syncope episode. ns 1000ml bolus started by 2nd iv access.
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
[2018-07-20 17:10] LABS: Troponin I < 0.012 ng/mL (0.01-0.034)
[2018-07-20 17:14] LABS: CKMB % Relative Index 1.1 % (1.5-5.0); Creatine Kinase MB 3.11 ng/mL (<2.37)
== END 2018-07-20 16:45 | disposition short-term general hospital (02) ==
PROVIDERS: Emergency Provider Emergency Medicine
DX: I21.3 ST elevation (STEMI) myocardial infarction of unspecified site (principal)
CPT/HCPCS: 36591; 71045; 80053; 82550; 82553; 83690; 84484; 85025; 93005; 93010; 96360; 96361; 99283; 99285; J1644

== ENCOUNTER 2018-09-12 19:06 | Emergency (ER) | payer MEDICARE, MEDICAID, SELFPAY ==
[2018-09-12 19:08] VITALS: BP 154/81; PULSE 81; RESP 22; TEMP 36.8; O2SAT 100
--- NOTE | 2018-09-12 19:26 | DI.RAD.S_ITS ---
PROCEDURE: XR CHEST 1V INDICATIONS: shortness of breath TECHNIQUE: One view of the chest was acquired. COMPARISON: [facility], CR, XR CHEST 1V, 07/20/2018, 16:33. FINDINGS: Surgical changes and devices: None. Lungs and pleura: Lungs are clear. No pleural effusions or pneumothorax. Mediastinum: Mediastinal contours appear normal. Heart size is normal. Bones and chest wall: No suspicious bony lesions. Overlying soft tissues appear unremarkable. IMPRESSION: No acute cardiopulmonary disease. Dictated by: Ivan Gillis M.D. on 09/12/2018 at 20:19 Approved by: Ivan Gillis M.D. on 09/12/2018 at 20:20
[2018-09-12] MEDS: SODIUM CHLORIDE 0.9% 1,000 ML 1000 ML IV (19:30)
[2018-09-12 19:36] LABS: Add Manual Diff / Slide Review NO; Basophils Absolute Auto 100 /uL (0-100); Basophils Percent Auto 0.6 % (0-2); Eosinophils Absolute Auto 100 /uL (0-450); Eosinophils Percent Auto 0.7 % (2-4); Hematocrit 45.6 % (41-53); Hemoglobin 15.3 g/dL (13.5-17.5); Lymphocytes Absolute Auto 3800 /uL (1100-4500); Lymphocytes Percent Auto 32.9 % (25-40); Mean Corpuscular HGB Conc 33.4 % (30-36); Mean Corpuscular Hemoglobin 29.8 PG (26-34); Monocytes Absolute Auto 700 /uL (0-900); Monocytes Percent Auto 6.5 % (3-14); Neutrophils Absolute Auto 6800 /uL (1500-7000); Neutrophils Percent Auto 59.3 % (50-75); Platelet Count 200 X10^3/uL (150-400); Red Blood Cell Count 5.13 X10^6/uL (4.5-5.9); Red Cell Distribution Width 13.3 % (11.6-14.8); White Blood Cell Count 11.5 X10^3/uL (4.5-11.0)
[2018-09-12 19:37] VITALS: BP 162/78; PULSE 77; RESP 16; O2SAT 98
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
[2018-09-12 19:41] LABS: BUN Creatinine Ratio 17.8 (6-22); Blood Urea Nitrogen 16 mg/dL (9-20); Calcium 9.3 mg/dL (8.4-10.2); Carbon Dioxide 26 mmol/L (22-32); Chloride 106 mmol/L (98-107); Creatine Kinase 280 U/L (55-170); Estimated Glomerular Filt Rate > 60.0 mL/min (>60); Glucose 83 mg/dL (80-110); Potassium 3.5 mmol/L (3.4-5.1); Sodium 142 mmol/L (137-145)
[2018-09-12 19:43] LABS: D Dimer < 200 ng/mL (<230)
--- NOTE | 2018-09-12 19:44 | PC.NURSE ---
lactate drawn by lab
[2018-09-12 19:52] LABS: Troponin I < 0.012 ng/mL (0.01-0.034)
[2018-09-12 19:55] LABS: CKMB % Relative Index 1.2 % (1.5-5.0); Creatine Kinase MB 3.42 ng/mL (<2.37); HEMOLYSIS 17 (0-50)
[2018-09-12 20:00] VITALS: BP 134/104; PULSE 78; RESP 19; O2SAT 100
[2018-09-12 20:10] LABS: B Type Natriuretic Peptide < 100 (<100)
[2018-09-12 20:12] LABS: Lactate (Lactic Acid) 1.3 mmol/L (0.7-2.1)
[2018-09-12 20:20] LABS: Procalcitonin < 0.05 ng/mL (<0.5)
--- NOTE | 2018-09-12 20:47 | PC.NURSE ---
entered pt room, pt sitting on edge of bed stating I think i'm gonna today, something bad is happening. Provider notified and immediatley entered pt room. ECG performed.
[2018-09-12 20:48] VITALS: BP 151/77; PULSE 78; RESP 16; O2SAT 96
[2018-09-12 21:00] VITALS: BP 143/88; PULSE 70; RESP 17; O2SAT 98
--- NOTE | 2018-09-12 21:11 | PC.NURSE ---
provider ok'd fluid bolus rate of 1000ml/hr per pt request to get hydrated
--- NOTE | 2018-09-12 21:12 | DI.CT.S_ITS ---
PROCEDURE: CT HEAD/BRAIN WO CON INDICATIONS: mental status change, dizzy TECHNIQUE: Noncontrast 4.5 mm thick angled axial sections acquired from the foramen magnum to the vertex, with coronal and sagittal reformats. For radiation dose reduction, the following was used: automated exposure control, adjustment of mA and/or kV according to patient size. COMPARISON: None. FINDINGS: Image quality: Excellent. CSF spaces: Basal cisterns are patent. No extra-axial fluid collections. The ventricles are symmetric in size and shape. Brain: No intracranial bleeds or masses. There is minimal cerebral volume loss for age, with resultant ventricular and sulcal prominence. There are minimal periventricular and deep white matter chronic small vessel ischemic changes. There is intracranial internal carotid artery atherosclerosis. Skull and face: Calvarium and visualized facial bones appear intact, without suspicious lesions. Sinuses: Visualized sinuses and mastoids are clear. IMPRESSION: 1. No acute intracranial abnormalities. 2. Minimal cerebral volume loss and chronic microvascular ischemic changes. Dictated by: Ivan Gillis M.D. on 09/12/2018 at 22:11 Approved by: Ivan Gillis M.D. on 09/12/2018 at 22:12
[2018-09-12 21:46] LABS: Urine Amphetamines Negative (Negative); Urine Barbiturates Negative (Negative); Urine Benzodiazepines Negative (Negative); Urine Cocaine Negative (Negative); Urine MDMA Negative (Negative); Urine Methadone Negative (Negative); Urine Methamphetamines Negative (Negative); Urine Morphine/Opi cutoff 2000 Negative (Negative); Urine Oxycodone Negative (Negative); Urine Phencyclidine Negative (Negative); Urine Tetrahydrocannabinol Negative (Negative); Urine Tricyclic Antidepressant Negative (Negative)
--- NOTE | 2018-09-12 21:50 | ED.SOB ---
HPI - SOB/Dyspnea General Chief Complaint: Shortness of Breath/Dyspnea Stated Complaint: SOB Time Seen by Provider: 09/12/18 19:10 Source: patient and family Mode of arrival: ambulatory Limitations: no limitations History of Present Illness 62-year-old male, poor historian presents with a chief complaint of a day or 2 of fatigue, some shortness of breath and episodes of dizziness. He states he becomes dizzy upon standing and admittedly has had a poor appetite and thinks maybe he has not been drinking enough. He denies any chest pain but did have a cardiac event about 1-2 months ago and received a heart catheterization and subsequent stents. At that time the patient was having chest pain, radiation to neck and shoulder and states his symptoms today are much much different. He denies recent travel or history of blood clot. He has had no hemoptysis nor fever or chills MD Complaint: shortness of breath Onset (ago): day(s) Severity: mild Consistency/Duration: intermittent Relieving factors: nothing Exacerbating factors: nothing Treatment prior to arrival: none Related Data Home oxygen amount: none Previous Rx's Medication Instructions Recorded clonazepam [Klonopin] 0.5 mg PO TID PRN #5 tab 03/18/18 Allergies Allergy/AdvReac Type Severity Reaction Status Date / Time No Known Drug Allergies Allergy Verified 07/20/18 16:23 Review of Systems Constitutional Denies chills, Denies fever(s), Denies lethargy and Denies weakness Eyes Denies change in vision, Denies eye discharge, Denies irritation and Denies loss of vision ENT Ears, Nose, Mouth, and Throat: Denies change in voice, Denies neck pain and Denies sore throat Cardiovascular Denies chest pain, Denies irregular heart rhythm, Denies lightheadedness, Denies palpitations, Reports dyspnea, Denies dyspnea on exertion and Denies orthopnea Respiratory Denies cough, Reports dyspnea, Denies dyspnea on exertion and Denies wheezing Gastrointestinal Gastrointestinal: Denies abdominal pain, Denies change in bowel habits, Denies diarrhea, Denies nausea and Denies vomiting Genitourinary Denies hematuria, Denies flank pain, Denies urinary incontinence and Denies urinary urgency Musculoskeletal Denies neck pain Integumentary/Breasts Denies pruritus, Denies erythema, Denies rash and Denies wounds Neurologic Denies confusion, Denies loss of vision and Denies weakness Psychiatric Denies anxiety, Denies confusion, Denies depression, Denies homicidal ideation and Denies suicidal ideation Endocrine Denies palpitations Hematologic/Lymphatic Denies easy bruising Allergic/Immunologic Denies wheezing [facility] Medical History BPH (benign prostatic hyperplasia) (Chronic) Mood disorder (Chronic) Schizophrenia (Chronic) Social History Smoking Status: Current every day smoker Social History Smoking Status: Current every day smoker Exam Narrative Exam Narrative: GENERAL: 62M resting comfortably, perhaps a bit anxious HEAD: Atraumatic. Normocephalic. No temporal or scalp tenderness. EYES: Pupils equal round and reactive. Extraocular motions intact. No scleral icterus. No injection or drainage. ENT: Nose without bleeding, purulent drainage or septal hematoma. Throat without erythema, tonsillar hypertrophy or exudate. Uvula midline. Airway patent. NECK: Trachea midline. No JVD or lymphadenopathy. Supple, nontender, no meningeal signs. CARDIOVASCULAR: Regular rate and rhythm without murmurs, gallops, or rubs. RESPIRATORY: Clear to auscultation. Breath sounds equal bilaterally. No wheezes, rales, or rhonchi. GASTROINTESTINAL: Abdomen soft, non-tender, nondistended. No hepato-splenomegaly, or palpable masses. No guarding. EXTREMITIES: No clubbing, cyanosis, or edema. No joint tenderness, effusion, or edema noted. BACK: Nontender without deformity or crepitance. No flank tenderness. NEURO: AOx3. SKIN: No rash or erythema. NIH Stroke Scale 1a. LOC: Patient is alert and keenly responsive (0) 1b. LOC Questions: Patient answers both LOC questions accurately (0) 1c. LOC Commands: Patient performs both tasks correctly (0) 2. Best Gaze: Normal (0) 3. Visual: No visual loss (0) 4. Facial palsy: Normal symmetrical movements (0) 5. Motor arm: No drift (0) 6. Motor leg: No drift (0) 7. Limb ataxia: Absent (0) 8. Sensory: Normal (0) 9. Best language: No aphasia; normal (0) 10. Dysarthria: Normal (0) 11. Extinction and inattention: No abnormality (0) NIHSS: 0 Initial Vital Signs Initial Vital Signs: Vital Signs Temperature 98.3 F 09/12/18 19:08 Pulse Rate 81 09/12/18 19:08 Respiratory Rate 22 09/12/18 19:08 Blood Pressure 154/81 H 09/12/18 19:08 Pulse Oximetry 100 09/12/18 19:08 Scores HEART Score Heart Score history: Slightly Suspicious Heart Score EKG: Normal Heart Score Age: 45-64 years old Heart Score risk factors: > 3 risk factors or hx of atherosclerotic disease Heart Score troponin: < or = to normal limit Heart Score Total: 3 Wells' Criteria for PE Clinical signs and symptoms of PE: No PE is #1 Dx or equally likely: No Heart rate > 100: No Immobilization at least 3 days or surg in previous 4 weeks: No History of PE or DVT: No Hemoptysis: No Malignancy w/Treatment within 6 months or palliative: No Wells' PE Score total: 0 Course Orders Ordered: ED Orders 09/12/18 19:12 EKG-12 Lead Stat 09/12/18 19:20 B Type Natriuretic Peptide Stat Basic Metabolic Panel Stat Complete Blood Count AUTO DIFF Stat D Dimer Stat Magnesium Stat Troponin & CK Cardiac Panel Stat 09/12/18 19:25 Consult to Respiratory Therapy Evaluate & Treat EKG-12 Lead Stat 09/12/18 19:26 XR chest 1V Stat 09/12/18 19:45 Lactate (Lactic Acid) Stat Procalcitonin Stat 09/12/18 21:00 Urine Drug Screen, Rapid Stat 09/12/18 21:12 CT head/brain wo con Stat Sodium Chloride (Normal Saline 0.9%) 1,000 mls @ 150 mls/hr IV CONT ELKE Last Infusion: 09/12/18 21:58 Dose: 0 mls/hr Admin: 09/12/18 19:30 Dose: 1,000 mls/hr Vital Signs - 8 hr 09/12/18 19:08 09/12/18 19:37 09/12/18 20:00 Temperature 98.3 F Pulse Rate 81 77 78 Respiratory Rate 22 16 19 Blood Pressure 154/81 H Blood Pressure [Left Arm] 162/78 H 134/104 H Pulse Oximetry 100 98 100 09/12/18 20:48 09/12/18 21:00 Temperature Pulse Rate 78 70 Respiratory Rate 16 17 Blood Pressure Blood Pressure [Left Arm] 151/77 H 143/88 H Pulse Oximetry 96 98 MDM - SOB/Dyspnea Medical Records Attestation: I reviewed the patient's medical records. [facility] records reviewed. LAD stents placed Lab Data Result diagrams: 09/12/18 19:20 09/12/18 19:20 Lab Results 09/12/18 09/12/18 09/12/18 Range/Units 19:20 19:20 19:20 WBC 11.5 H (4.5-11.0) X10^3/uL RBC 5.13 (4.5-5.9) X10^6/uL Hgb 15.3 (13.5-17.5) g/dL Hct 45.6 (41-53) % MCV 89.0 (80-100) fL MCH 29.8 (26-34) PG MCHC 33.4 (30-36) % RDW 13.3 (11.6-14.8) % Plt Count 200 (150-400) X10^3/uL Neut % (Auto) 59.3 (50-75) % Lymph % (Auto) 32.9 (25-40) % [place] % (Auto) 6.5 (3-14) % Eos % (Auto) 0.7 L (2-4) % Baso % (Auto) 0.6 (0-2) % Neut # (Auto) 6800 (2525-7549) /uL Lymph # (Auto) 3800 (5716-9853) /uL [place] # (Auto) 700 (0-900) /uL Eos # (Auto) 100 (0-450) /uL Baso # (Auto) 100 (0-100) /uL D-Dimer < 200 (<230) ng/mL Sodium 142 (137-145) mmol/L Potassium 3.5 (3.4-5.1) mmol/L Chloride 106 (98-107) mmol/L Carbon Dioxide 26 (22-32) mmol/L BUN 16 (9-20) mg/dL Creatinine 0.90 (0.66-1.25) mg/dL Estimated GFR > 60.0 (>60) mL/min BUN/Creatinine Ratio 17.8 (6-22) Glucose 83 (80-110) mg/dL Lactate (0.7-2.1) mmol/L Calcium 9.3 (8.4-10.2) mg/dL Magnesium 2.0 (1.6-2.3) mg/dL Total Creatine Kinase 280 H (55-170) U/L CK-MB (CK-2) 3.42 H (<2.37) ng/mL CK-MB (CK-2) Rel Index 1.2 L (1.5-5.0) % Troponin I < 0.012 (0.01-0.034) ng/mL B-Natriuretic Peptide < 100 (<100) Procalcitonin (<0.5) ng/mL Urine Opiates Screen (Negative) Ur Oxycodone Screen (Negative) Urine Methadone Screen (Negative) Ur Barbiturates Screen (Negative) U Tricyclic Antidepress (Negative) Ur Phencyclidine Scrn (Negative) Ur Amphetamines Screen (Negative) U Methamphetamines Scrn (Negative) Ur MDMA Scrn (Ecstasy) (Negative) U Benzodiazepines Scrn (Negative) Urine Cocaine Screen (Negative) U Marijuana (THC) Screen (Negative) 09/12/18 09/12/18 09/12/18 Range/Units 19:45 19:45 21:00 WBC (4.5-11.0) X10^3/uL RBC (4.5-5.9) X10^6/uL Hgb (13.5-17.5) g/dL Hct (41-53) % MCV (80-100) fL MCH (26-34) PG MCHC (30-36) % RDW (11.6-14.8) % Plt Count (150-400) X10^3/uL Neut % (Auto) (50-75) % Lymph % (Auto) (25-40) % [place] % (Auto) (3-14) % Eos % (Auto) (2-4) % Baso % (Auto) (0-2) % Neut # (Auto) (9993-4702) /uL Lymph # (Auto) (3327-0042) /uL [place] # (Auto) (0-900) /uL Eos # (Auto) (0-450) /uL Baso # (Auto) (0-100) /uL D-Dimer (<230) ng/mL Sodium (137-145) mmol/L Potassium (3.4-5.1) mmol/L Chloride (98-107) mmol/L Carbon Dioxide (22-32) mmol/L BUN (9-20) mg/dL Creatinine (0.66-1.25) mg/dL Estimated GFR (>60) mL/min BUN/Creatinine Ratio (6-22) Glucose (80-110) mg/dL Lactate 1.3 (0.7-2.1) mmol/L Calcium (8.4-10.2) mg/dL Magnesium (1.6-2.3) mg/dL Total Creatine Kinase (55-170) U/L CK-MB (CK-2) (<2.37) ng/mL CK-MB (CK-2) Rel Index (1.5-5.0) % Troponin I (0.01-0.034) ng/mL B-Natriuretic Peptide (<100) Procalcitonin < 0.05 (<0.5) ng/mL Urine Opiates Screen Negative (Negative) Ur Oxycodone Screen Negative (Negative) Urine Methadone Screen Negative (Negative) Ur Barbiturates Screen Negative (Negative) U Tricyclic Antidepress Negative (Negative) Ur Phencyclidine Scrn Negative (Negative) Ur Amphetamines Screen Negative (Negative) U Methamphetamines Scrn Negative (Negative) Ur MDMA Scrn (Ecstasy) Negative (Negative) U Benzodiazepines Scrn Negative (Negative) Urine Cocaine Screen Negative (Negative) U Marijuana (THC) Screen Negative (Negative) Urine Dip Bedside Urine Glucose Negative Bedside Urine Bilirubin - Negative Bedside Urine Ketone - Negative Urine Specific [place] 1.025 Bedside Urine Occult Blood - Negative Bedside Urine pH 6.0 Bedside Urine Protein - Negative Bedside Urine Urobilinogen - Negative Bedside Urine Nitrite - Negative Bedside Urine Leukocytes - Negative Esterase ECG Data Attestation: I personally reviewed and interpreted this ECG as follows: Prior ECG tracings: available for review Interpretation: EKG is normal sinus rhythm rate [ 78] and free of any signs of ischemia or ectopy. No ST segmental elevation or depression. No T wave inversions. Old Q waves noted EKG #2 - unchanged MDM Narrative Medical decision making narrative: Multiple etiologies for patient's symptoms considered including: [Pneumonia, pneumothorax, anxiety, dehydration, myocardial infarction,] Patient's symptoms improved or duration of stay with above-stated therapies. Findings and discharge diagnosis discussed with patient/family followed by verbalization of understanding Return precautions discussed with patient/family whom verbalize understanding. Discharge Plan Departure Patient Disposition: Home Clinical Impression: Dizziness, Acute dehydration Dyspnea Qualifiers: Dyspnea type: dyspnea on exertion Qualified Code(s): R06.09 - Other forms of dyspnea Instructions: DI for Dizziness-Nonvertigo Activity Restrictions/Additional Instructions: *You have been diagnosed with [ acute dyspnea, dehydration, anxiety, heart attack and blood clot were considered but thought less likely ] *What to do: * continue to take medications as directed *Follow up with your primary care provider in 2-3 days, call for an appointment. Let them know you were seen in the Emergency Department and that we ask that you be seen in follow up *Return to ER if you should have any new, worsening or concerning symptoms Prescriptions: No Action clonazepam [Klonopin] 0.5 mg tablet 0.5 mg PO TID PRN (Reason: anxiety) Qty: 5 RF: 0
[2018-09-12 23:05] VITALS: BP 143/88; PULSE 69; RESP 14; O2SAT 99
== END 2018-09-12 23:07 | disposition home or self-care (01) ==
PROVIDERS: Emergency Provider Emergency Medicine
DX: R42 Dizziness and giddiness (principal); E86.0 Dehydration; R06.00 Dyspnea, unspecified; R53.83 Other fatigue
CPT/HCPCS: 36415; 36591; 70450; 71045; 80048; 80305; 81003; 82550; 82553; 83605; 83735; 83880; 84145; 84484; 85025; 85379; 93005; 96360; 96361; 99283; 99285; 99291

== ENCOUNTER → 2018-10-06 11:25 | Outpatient (CLI) | payer MEDICARE, MEDICAID, SELFPAY ==
[2018-10-06 12:28] LABS: Hemoglobin A1C% w Est Avg Glu 6.1 % (4.0-6.0)
[2018-10-06 13:02] LABS: Alanine Aminotransferase 40 IU/L (21-72); Albumin 4.6 g/dL (3.5-5.0); Albumin Globulin Ratio 1.5 (1.0-2.8); Alkaline Phosphatase 105 U/L (38-126); Aspartate Aminotransferase 28 IU/L (17-59); Bilirubin Total 0.6 mg/dL (0.2-1.3); Blood Urea Nitrogen 16 mg/dL (9-20); Calcium 9.6 mg/dL (8.4-10.2); Carbon Dioxide 27 mmol/L (22-32); Chloride 102 mmol/L (98-107); Estimated Glomerular Filt Rate > 60.0 mL/min (>60); Glucose 134 mg/dL (80-110); HEMOLYSIS < 15 (0-50); Potassium 4.3 mmol/L (3.4-5.1); Sodium 141 mmol/L (137-145); Total Protein 7.6 g/dL (6.3-8.2)
== END ==
PROVIDERS: PCP Student in an Organized Health Care Education/Training Program; Visit Provider Internal Medicine
DX: R73.03 Prediabetes (principal)
CPT/HCPCS: 36415; 80053; 83036

== ENCOUNTER 2019-04-15 19:34 | Emergency (ER) | payer MEDICARE, MEDICAID, SELFPAY ==
[2019-04-15 19:36] VITALS: BP 179/93; PULSE 93; RESP 18; TEMP 36.2; O2SAT 98; BMI 28.7
--- NOTE | 2019-04-15 20:04 | ED_ITS ---
HPI - Male Genitourinary <CHRISTIANO Fitzpatrick - Last Filed: 04/15/19 20:50> General Chief complaint: Urogenital-Male Stated complaint: troble urinating/poss enlarged prostate Time Seen by Provider: 04/15/19 19:37 Source: patient Mode of arrival: Ambulatory Limitations: no limitations History of Present Illness HPI Narrative: The patient is a 63-year-old male current smoker with history of stemi who presents to the emergency department for chief complaint of ?it takes a long time for me to urinate.He states that he does not have any dysuria urgency or frequency, but sometimes it takes a long time for his bladder to empty itself. He denies any fevers nausea vomiting diarrhea or flank pain. He presents requesting PSA testing. He denies any hematuria. He denies any rectal pain or pressure, pain with bowel movements etc Related Data Previous Rx's Medication Instructions Recorded clonazepam [Klonopin] 0.5 mg PO TID PRN #5 tab 03/18/18 Allergies Allergy/AdvReac Type Severity Reaction Status Date / Time No Known Drug Allergies Allergy Verified 04/15/19 19:46 Review of Systems <CHRISTIANO Fitzpatrick - Last Filed: 04/15/19 20:50> Review of Systems Narrative: GENERAL: Denies chills, fatigue, malaise, fever, sweats. HEENT: Denies sinus pain, ear pain, sore throat, difficulty swallowing, dizziness. RESPIRATORY: Denies dyspnea, cough, wheezing, hemoptysis, sputum. CARDIOVASCULAR: Denies chest pain, palpitations, orthopnea, edema, GASTROINTESTINAL: Denies nausea, vomiting, abdominal pain, diarrhea, constipation, melena. : See HPI MUSCULOSKELETAL: denies weakness, joint pain, or bony pain SKIN: Denies rash, skin lesions, or other NEUROLOGIC: Denies weakness, headache, numbness, change in speech, confusion, seizures, incoordination. PSYCHIATRIC: No concerning psychosocial issues. 12 point review of systems is negative except for those stated above Patient History <CHRISTIANO Fitzpatrick - Last Filed: 04/15/19 20:50> Medical History BPH (benign prostatic hyperplasia) (Chronic) Mood disorder (Chronic) Schizophrenia (Chronic) Social History Smoking Status: Current every day smoker alcohol intake frequency: 0-2 drinks per day Substance Use Type: does not use Exam <CHRISTIANO Fitzpatrick - Last Filed: 04/15/19 20:50> Narrative Exam Narrative: GENERAL: This is a well-nourished, well-developed patient, in no acute distress HEAD: Atraumatic. Normocephalic. No temporal or scalp tenderness. EYES: Pupils equal round and reactive. Extraocular motions intact. No scleral icterus. No injection or drainage. ENT: Nose without bleeding, purulent drainage or septal hematoma. Throat without erythema, tonsillar hypertrophy or exudate. Uvula midline. Airway patent. NECK: Trachea midline. No JVD or lymphadenopathy. Supple, nontender, no meningeal signs. CARDIOVASCULAR: Regular rate and rhythm RESPIRATORY: No cough. No increased respiratory effort. No accessory muscle use GASTROINTESTINAL: Abdomen soft, non-tender, nondistended. No hepato- splenomegaly, or palpable masses. No guarding. Active bowel sounds all 4 quadrants. No pain to palpation suprapubic area. EXTREMITIES: No clubbing, cyanosis, or edema. No joint tenderness, effusion, or edema noted. BACK: Nontender without deformity or crepitance. No flank tenderness. NEURO: AOx3. SKIN: No rash or erythema. Initial Vital Signs Initial Vital Signs: Vital Signs Temperature 97.1 F L 04/15/19 19:36 Pulse Rate 93 H 04/15/19 19:36 Respiratory Rate 18 04/15/19 19:36 Blood Pressure 179/93 H 04/15/19 19:36 Pulse Oximetry 98 04/15/19 19:36 <Isaias Rodriguez DO - Last Filed: 04/15/19 20:52> Initial Vital Signs Initial Vital Signs: Vital Signs Temperature 97.1 F L 04/15/19 19:36 Pulse Rate 93 H 04/15/19 19:36 Respiratory Rate 18 04/15/19 19:36 Blood Pressure 179/93 H 04/15/19 19:36 Pulse Oximetry 98 04/15/19 19:36 Course <CHRISTIANO Fitzpatrick - Last Filed: 04/15/19 20:50> Orders Ordered: ED Orders 04/15/19 20:04 Urinalysis and Microscopic Stat Vital Signs Vital signs: Vital Signs - 8 hr 04/15/19 19:36 Temperature 97.1 F L Pulse Rate 93 H Respiratory Rate 18 Blood Pressure 179/93 H Pulse Oximetry 98 <Isaias Rodriguez DO - Last Filed: 04/15/19 20:52> Orders Ordered: ED Orders 04/15/19 20:04 Urinalysis and Microscopic Stat Vital Signs Vital signs: Vital Signs - 8 hr 04/15/19 19:36 Temperature 97.1 F L Pulse Rate 93 H Respiratory Rate 18 Blood Pressure 179/93 H Pulse Oximetry 98 MDM - Male Genitourinary <YUNIEL Fitzpatrick-BC - Last Filed: 04/15/19 20:50> Lab Data Labs: Lab Results 04/15/19 Range/Units 20:04 Urine Color Yellow Urine Appearance Clear Urine pH 6.5 (4.5-8.0) Ur Specific [place] 1.010 (1.000-1.035) Urine Protein Negative (Negative) Urine Glucose (UA) Negative (Negative) g/dL Urine Ketones Negative (NEGATIVE) Urine Occult Blood Negative (Negative) Urine Nitrate Negative (Negative) Urine Bilirubin Negative (NEGATIVE) Urine Urobilinogen 0.2 (0.2) E.U./dL Ur Leukocyte Esterase Negative (NEGATIVE) Urine RBC 0-1/hpf (0-5/HPF) Urine WBC 0-1/hpf (0-5/HPF) Urine Bacteria None seen (None) Ur Culture Indicated? Cult not indicated Micro UA Comment Microscopic normal MDM Narrative Medical decision making narrative: The patient is a 63-year-old male who presents to the emergency department for chief complaint of urinary difficulties requesting PSA testing. I discussed at length that we do not do that in the emergency department any as to follow up with primary care provider. He states he does not have 1, so I gave him contact information to the [facility] health human resources benefits specialist. Bladder scan was completed which showed no urinary retention. Urinalysis shows no indications of infection. I discussed coming back to the ER for any acute concerns such as inability to empty bladder, signs of infection. Patient has no questions or concerns upon discharge and states understanding of return precautions as well as follow-up care. <Isaias Rodriguez DO - Last Filed: 04/15/19 20:52> Lab Data Labs: Lab Results 04/15/19 Range/Units 20:04 Urine Color Yellow Urine Appearance Clear Urine pH 6.5 (4.5-8.0) Ur Specific [place] 1.010 (1.000-1.035) Urine Protein Negative (Negative) Urine Glucose (UA) Negative (Negative) g/dL Urine Ketones Negative (NEGATIVE) Urine Occult Blood Negative (Negative) Urine Nitrate Negative (Negative) Urine Bilirubin Negative (NEGATIVE) Urine Urobilinogen 0.2 (0.2) E.U./dL Ur Leukocyte Esterase Negative (NEGATIVE) Urine RBC 0-1/hpf (0-5/HPF) Urine WBC 0-1/hpf (0-5/HPF) Urine Bacteria None seen (None) Ur Culture Indicated? Cult not indicated Micro UA Comment Microscopic normal Discharge Plan Departure Patient Disposition: Home Clinical Impression: Urinary problem Instructions: Benign Prostatic Hyperplasia (Alternative Therapy), Benign Prostatic Hyperplasia Activity Restrictions/Additional Instructions: Today you do not illustrate any evidence of urinary retention and urinated just prior to coming to the emergency department. Your bladder scan did not show urinary retention and your urine sample shows no signs of infection. I have given the contact information for the health human resources benefits specialist, they can help you identify primary care provider. Please follow up with primary care provider for the further lab work your investigating in the emergency department Prescriptions: No Action clonazepam [Klonopin] 0.5 mg tablet 0.5 mg PO TID PRN (Reason: anxiety) Qty: 5 RF: 0 Referrals: [facility] [Outside] Jadon Cottrell [Primary Care Provider] - <Isaias Rodriguez DO - Last Filed: 04/15/19 20:52> Sign Out Provider Sign Out Attestation: Dr Rodriguez Co-Sign Statement: I was available for consultation during this patient's emergency department visit. This chart is signed by myself for administrative purposes only. I did not have direct contact with this patient during this visit. They were seen independently by the APC.
[2019-04-15 20:05] LABS: Bacteria Urine None Seen
[2019-04-15 20:07] LABS: Appearance Urine UA CLEAR; Bilirubin Urine UA NEGATIVE (NEGATIVE); Color Urine UA YELLOW; Glucose Urine UA NEGATIVE (Negative); Ketones Urine UA NEGATIVE (NEGATIVE); Leukocyte Esterase Urine UA NEGATIVE (NEGATIVE); Nitrite Urine UA NEGATIVE (Negative); Occult Blood Urine UA NEGATIVE (Negative); Protein Urine UA NEGATIVE (Negative); Urobilinogen Urine UA 0.2 E.U./dL (0.2); pH Urine UA 6.5 (4.5-8.0)
[2019-04-15 20:17] LABS: Culture Indicated Urine Cult Not Indicated; RBC Urine 0-1/HPF (0-5/HPF); Urine Comments Microscopic Normal; WBC Urine 0-1/HPF (0-5/HPF)
[2019-04-15 21:01] VITALS: BP 170/88; PULSE 83; RESP 18; TEMP 36.7; O2SAT 98
== END 2019-04-15 21:12 | disposition home or self-care (01) ==
PROVIDERS: Emergency Provider Nurse Practitioner Family; PCP Student in an Organized Health Care Education/Training Program
DX: R39.198 Other difficulties with micturition (principal)
CPT/HCPCS: 51798; 81001; 99283

== ENCOUNTER 2019-11-22 22:30 | Emergency (ER) | payer MEDICARE, MEDICAID, SELFPAY ==
[2019-11-22 22:54] VITALS: BP 177/99; PULSE 98; RESP 18; TEMP 36.6; O2SAT 98; BMI 29.4
--- NOTE | 2019-11-22 23:02 | ED.EXTPRO ---
HPI - Extremity Problem General Chief complaint: Extremity Problem,Nontraumatic Stated complaint: LEFT ARM INFECTION Time Seen by Provider: 11/22/19 22:31 Source: patient Mode of arrival: Ambulatory Limitations: no limitations History of Present Illness HPI Narrative: 64-year-old male nonsmoker with history of prior skin infections presents with a family friend in the chief complaint of red, painful and warm skin on his right upper extremity consistent with infection. He has had skin infections with for any states it feels the same. He denies any systemic findings such as fever, chills or nausea or vomiting. He denies any injury. Patient his arms down with hydrogen peroxide prior to arrival and thinks that maybe that helped. MD Complaint: extremity pain and extremity swelling Onset (ago): day(s) Pain Consistency: constant Location: right Quality: burning and aching Radiation: none Relieving factors: nothing Exacerbating factors: nothing Associated symptoms: denies other symptoms Related Data Previous Rx's Medication Instructions Recorded clonazepam [Klonopin] 0.5 mg PO TID PRN #5 tab 03/18/18 doxycycline hyclate 100 mg PO BID #20 tab 11/22/19 Allergies Allergy/AdvReac Type Severity Reaction Status Date / Time No Known Drug Allergies Allergy Verified 11/22/19 22:54 Review of Systems Constitutional Constitutional: Denies chills, Denies fatigue, Denies fever(s), Denies frequent falls, Denies lethargy and Denies weakness Eyes Eyes: Denies change in vision, Denies eye discharge, Denies irritation and Denies loss of vision ENT Ears, Nose, Mouth, and Throat: Denies change in voice, Denies dizziness, Denies neck pain, Denies sore throat and Denies throat swelling Cardiovascular Cardiovascular: Denies chest pain, Denies irregular heart rhythm, Denies lightheadedness, Denies palpitations, Denies dyspnea, Denies dyspnea on exertion and Denies orthopnea Respiratory Respiratory: Denies cough, Denies dyspnea, Denies dyspnea on exertion and Denies wheezing Gastrointestinal Gastrointestinal: Denies abdominal pain, Denies change in bowel habits, Denies diarrhea, Denies nausea and Denies vomiting Musculoskeletal Musculoskeletal: Denies neck pain and Denies numbness Integumentary/Breasts Skin/Breast: Denies pruritus, Reports erythema, Denies rash, Reports skin pain, Reports skin swelling and Denies wounds Neurologic Neurologic: Denies behavioral changes, Denies confusion, Denies dizziness, Denies frequent falls, Denies loss of vision, Denies numbness and Denies weakness Psychiatric Psychiatric: Denies anxiety, Denies behavioral changes, Denies confusion, Denies depression, Denies homicidal ideation and Denies suicidal ideation Endocrine Endocrine: Denies fatigue, Denies flushing and Denies palpitations Hematologic/Lymphatic Hematologic/Lymphatic: Denies easy bruising Allergic/Immunologic Allergic/Immunologic: Denies urticaria, Denies throat swelling and Denies wheezing Patient History Medical History BPH (benign prostatic hyperplasia) (Chronic) Mood disorder (Chronic) Schizophrenia (Chronic) Social History Smoking Status: Current every day smoker Smoking Status: Current every day smoker tobacco type: pipe alcohol intake frequency: 0-2 drinks per day Substance Use Type: does not use Exam Narrative Exam Narrative: GEN: AOx3 and in mild distress EYES: Pupils are equal, round, and reactive to light and accommodation. Extraoccular muscles are intact bilaterally. There is no subconjunctival hemorrhage or exudate. CHEST: Lungs are clear to auscultation bilaterally and free of wheezes, rales, or rhonchi. Heart rate is regular rhythm, there are no murmurs, clicks, rubs, or gallops. There is no chest wall tenderness. ABD: Abdomen is soft and nontender. There is no guarding or rebound. Bowel sounds are normal in all 4 quadrants. There is no mass or organomegaly. EXT: Full painless ROM of all extremities with no loss of sensation or strength. SKIN: Mild redness and warmth on the dorsal lateral aspect of right upper extremity overlying forearm. No fluctuance or induration. It is not circumferential. No lymphangitis. Initial Vital Signs Initial Vital Signs: Vital Signs Temperature 97.8 F 11/22/19 22:54 Pulse Rate 98 H 11/22/19 22:54 Respiratory Rate 18 11/22/19 22:54 Blood Pressure 177/99 H 11/22/19 22:54 Pulse Oximetry 98 11/22/19 22:54 Course Orders Ordered: Discontinued Medications Doxycycline Hyclate (Vibramycin) 100 mg PO NOW ONE Stop: 11/22/19 23:08 Last Admin: 11/22/19 23:12 Dose: 100 mg Documented by: CHELSIE Vital Signs Vital signs: Vital Signs - 8 hr 11/22/19 22:54 Temperature 97.8 F Pulse Rate 98 H Respiratory Rate 18 Blood Pressure 177/99 H Pulse Oximetry 98 Discharge Plan Departure Patient Disposition: Home Clinical Impression: Cellulitis of arm, right Discharge Date/Time: 11/22/19 23:19 Instructions: DI for Cellulitis -- Adult Activity Restrictions/Additional Instructions: *You have been diagnosed with [right arm cellulitis] *What to do: *Take medications as directed: Prescription sent to [facility] in [place] your request *Follow up with your primary care provider in 2-3 days, call for an appointment. Let them know you were seen in the Emergency Department and that we ask that you be seen in follow up *Return to ER if you should have any new, worsening or concerning symptoms Prescriptions: New doxycycline hyclate 100 mg tablet 100 mg PO BID Qty: 20 RF: 0 No Action clonazepam [Klonopin] 0.5 mg tablet 0.5 mg PO TID PRN (Reason: anxiety) Qty: 5 RF: 0 Referrals: [facility] [Outside] Jadon Cottrell [Primary Care Provider] -
[2019-11-22] MEDS: DOXYCYCLINE HYCLATE 100 MG TABLET PO (23:12)
== END 2019-11-22 23:19 | disposition home or self-care (01) ==
PROVIDERS: Emergency Provider Emergency Medicine; PCP Student in an Organized Health Care Education/Training Program
DX: L03.113 Cellulitis of right upper limb (principal)
CPT/HCPCS: 99282; 99283

== ENCOUNTER 2020-06-09 15:57 | Emergency (ER) | payer MEDICARE, MEDICAID, SELFPAY ==
[2020-06-09 16:13] VITALS: BP 136/94; PULSE 97; RESP 16; TEMP 36.6; O2SAT 97; BMI 30.4
== END 2020-06-09 17:00 | disposition left against medical advice (07) ==
PROVIDERS: Emergency Provider Emergency Medicine; PCP Student in an Organized Health Care Education/Training Program
CPT/HCPCS: 99281

== ENCOUNTER 2021-05-22 18:23 | Emergency (ER) | payer MEDICARE, MEDICAID, SELFPAY ==
[2021-05-22 18:32] VITALS: BP 160/80; PULSE 84; RESP 16; TEMP 36.9; O2SAT 99; BMI 30.4
[2021-05-22 19:03] LABS: Add Manual Diff / Slide Review NO; Basophils Absolute Auto 100 /uL (0-100); Basophils Percent Auto 0.6 % (0-2); Eosinophils Absolute Auto 0 /uL (0-450); Eosinophils Percent Auto 0.5 % (2-4); Hematocrit 45.5 % (41-53); Hemoglobin 15.5 g/dL (13.5-17.5); Lymphocytes Absolute Auto 2100 /uL (1100-4500); Lymphocytes Percent Auto 23.9 % (25-40); Mean Corpuscular HGB Conc 34.1 % (30-36); Mean Corpuscular Hemoglobin 30.3 PG (26-34); Mean Corpuscular Volume 88.8 fL (80-100); Monocytes Absolute Auto 500 /uL (0-900); Monocytes Percent Auto 5.5 % (3-14); Neutrophils Absolute Auto 6100 /uL (1500-7000); Neutrophils Percent Auto 69.5 % (50-75); Platelet Count 148 X10^3/uL (150-400); Red Blood Cell Count 5.12 X10^6/uL (4.5-5.9); Red Cell Distribution Width 12.4 % (11.6-14.8); White Blood Cell Count 8.8 X10^3/uL (4.5-11.0)
--- NOTE | 2021-05-22 19:07 | ED.RECABL ---
HPI - Recheck/Abnormal Lab/Rx General Chief Complaint: Recheck/Abnormal Lab/Rx Stated Complaint: Diabetes Time Seen by Provider: 05/22/21 18:57 Source: patient Mode of arrival: Ambulatory History of Present Illness HPI narrative: 65-year-old male smoker with history of coronary artery disease, hypertension, hyperlipidemia and previous diagnosis of insulin resistance presents with a chief complaint of fatigue, polyuria, poly dip see a, polyphagia over the past week or so. He has attempted to schedule an appointment with his primary care provider but has been unsuccessful, being told he must wait until the . He denies any fever or chills. He is not dizzy nor weak or lightheaded. He denies any chest pain or shortness of breath. He has had no nausea, vomiting or diarrhea. He denies any dietary change or new medications. Related Data Previous Rx's Medication Instructions Recorded clonazepam 0.5 mg tablet (Klonopin) 0.5 mg PO TID PRN #5 tab 03/18/18 doxycycline hyclate 100 mg tablet 100 mg PO BID #20 tab 11/22/19 metformin 500 mg tablet 500 mg PO BID #30 tab 05/22/21 Allergies Allergy/AdvReac Type Severity Reaction Status Date / Time No Known Drug Allergies Allergy Verified 11/22/19 22:54 Review of Systems Review of Systems Narrative: GENERAL: See HPI HEENT: Denies sinus pain, ear pain, sore throat, difficulty swallowing, dizziness. RESPIRATORY: Denies dyspnea, cough, wheezing, hemoptysis, sputum. CARDIOVASCULAR: Denies chest pain, palpitations, orthopnea, edema, GASTROINTESTINAL: Denies nausea, vomiting, abdominal pain, diarrhea, constipation, melena. : See HPI MUSCULOSKELETAL: denies weakness, joint pain, or bony pain SKIN: Denies rash, skin lesions, or other NEUROLOGIC: Denies weakness, headache, numbness, change in speech, confusion, seizures, incoordination. PSYCHIATRIC: No concerning psychosocial issues. 12 point review of systems is negative except for those stated above Patient History Medical History (Updated 05/22/21 @ 20:24 by Danilo Lopez DO) BPH (benign prostatic hyperplasia) Mood disorder Schizophrenia Social History Smoking Status: Current every day smoker Smoking Status: Current every day smoker tobacco type: pipe and vaping alcohol intake frequency: 0-2 drinks per day Substance Use Type: does not use Exam Narrative Exam Narrative: GENERAL: [65] year old patient appears stated age. Well-developed patient, in mild distress. HEAD: Atraumatic. Normocephalic. EYES: Pupils equal round and reactive. Extraocular motions intact. No scleral icterus. No injection or drainage. ENT: Nose without bleeding, purulent drainage. Throat without erythema, tonsillar hypertrophy or exudate. Airway patent. NECK: Trachea midline. Non tender CARDIOVASCULAR: Regular rate and rhythm without murmurs, gallops, or rubs. RESPIRATORY: Clear to auscultation. Breath sounds equal bilaterally. No wheezes, rales, or rhonchi. GASTROINTESTINAL: Abdomen soft, non-tender, nondistended. EXTREMITIES: No edema or joint tenderness. BACK: Nontender without deformity or crepitance. No flank tenderness. NEURO: AOx3. SKIN: No rash or erythema of visible areas Initial Vital Signs Initial Vital Signs: Vital Signs Temperature 98.4 F 05/22/21 18:32 Pulse Rate 84 05/22/21 18:32 Respiratory Rate 16 05/22/21 18:32 Blood Pressure 160/80 H 05/22/21 18:32 Pulse Oximetry 99 05/22/21 18:32 Course Orders Ordered: ED Orders 05/22/21 18:45 A1C [Hemoglobin A1C% w Est Avg Glu] Stat Complete Blood Count AUTO DIFF Stat Comprehensive Metabolic Panel Stat Magnesium Stat Troponin & CK Cardiac Panel Stat 05/22/21 19:17 EKG-12 Lead Stat 05/22/21 19:19 VBG [Venous Blood Gas] Stat 05/22/21 19:30 Urine Microscopic Stat Discontinued Medications Lactated Ringer's (Lactated Ringers) 1,000 mls @ 1,000 mls/hr IV BOLUS ONE Stop: 05/22/21 19:56 Last Infusion: 05/22/21 20:25 Dose: 0 mls/hr Documented by: Admin: 05/22/21 19:12 Dose: 1,000 mls/hr Documented by: CHELSIE Insulin Human Regular (Insulin Regular 100 Unit/Ml 3 Ml Vial) 5 unit SUBCUT NOW ONE Stop: 05/22/21 19:33 Last Admin: 05/22/21 19:49 Dose: 5 unit Documented by: HUSSAIN Cosigned by: HGUBERN Vital Signs Vital signs: Vital Signs - 8 hr 05/22/21 20:38 Temperature 98.5 F Pulse Rate 72 Respiratory Rate 16 Blood Pressure 143/83 H Pulse Oximetry 98 MDM - Recheck/Abnormal Lab/Rx Lab Data Result diagrams: 05/22/21 18:45 05/22/21 18:45 Labs: Lab Results 05/22/21 05/22/21 05/22/21 Range/Units 18:45 18:45 18:45 WBC 8.8 (4.5-11.0) X10^3/uL RBC 5.12 (4.5-5.9) X10^6/uL Hgb 15.5 (13.5-17.5) g/dL Hct 45.5 (41-53) % MCV 88.8 (80-100) fL MCH 30.3 (26-34) PG MCHC 34.1 (30-36) % RDW 12.4 (11.6-14.8) % Plt Count 148 L (150-400) X10^3/uL Neut % (Auto) 69.5 (50-75) % Lymph % (Auto) 23.9 L (25-40) % [place] % (Auto) 5.5 (3-14) % Eos % (Auto) 0.5 L (2-4) % Baso % (Auto) 0.6 (0-2) % Neut # (Auto) 6100 (1914-1533) /uL Lymph # (Auto) 2100 (1384-3566) /uL [place] # (Auto) 500 (0-900) /uL Eos # (Auto) 0 (0-450) /uL Baso # (Auto) 100 (0-100) /uL VBG pH (7.33-7.43) VBG pCO2 (45-50) mmHg VBG pO2 (35-45) mmHg VBG HCO3 (23-28) mmol/L VBG Total CO2 (24-29) mmol/L VBG O2 Saturation (70-75) % VBG Base Excess (0-4) mmol/L Sodium 129 L (137-145) mmol/L Potassium 4.7 (3.4-5.1) mmol/L Chloride 98 (98-107) mmol/L Carbon Dioxide 21 L (22-32) mmol/L BUN 27 H (9-20) mg/dL Creatinine 0.90 (0.66-1.25) mg/dL Estimated GFR > 60.0 (>60) mL/min BUN/Creatinine Ratio 30.0 H (6-22) Glucose 577 H* (80-110) mg/dL Hemoglobin A1c 13.6 H (4.0-6.0) % Calcium 9.7 (8.4-10.2) mg/dL Magnesium 2.1 (1.6-2.3) mg/dL Total Bilirubin 0.6 (0.2-1.3) mg/dL AST 27 (17-59) IU/L ALT 38 (<50) IU/L Alkaline Phosphatase 213 H (38-126) U/L Total Creatine Kinase 148 (55-170) U/L CK-MB (CK-2) 2.25 (<2.37) ng/mL CK-MB (CK-2) Rel Index 1.5 (1.5-5.0) % Troponin I < 0.012 (0.01-0.034) ng/mL Total Protein 7.4 (6.3-8.2) g/dL Albumin 4.4 (3.5-5.0) g/dL Globulin 3.0 (1.7-4.1) g/dL Albumin/Globulin Ratio 1.5 (1.0-2.8) Urine RBC (0-5/HPF) Urine WBC (0-5/HPF) Urine Bacteria (None) Ur Culture Indicated? 05/22/21 05/22/21 Range/Units 19:19 19:30 WBC (4.5-11.0) X10^3/uL RBC (4.5-5.9) X10^6/uL Hgb (13.5-17.5) g/dL Hct (41-53) % MCV (80-100) fL MCH (26-34) PG MCHC (30-36) % RDW (11.6-14.8) % Plt Count (150-400) X10^3/uL Neut % (Auto) (50-75) % Lymph % (Auto) (25-40) % [place] % (Auto) (3-14) % Eos % (Auto) (2-4) % Baso % (Auto) (0-2) % Neut # (Auto) (6248-9823) /uL Lymph # (Auto) (4389-6527) /uL [place] # (Auto) (0-900) /uL Eos # (Auto) (0-450) /uL Baso # (Auto) (0-100) /uL VBG pH 7.40 (7.33-7.43) VBG pCO2 37.4 L (45-50) mmHg VBG pO2 58 H (35-45) mmHg VBG HCO3 23 (23-28) mmol/L VBG Total CO2 24 (24-29) mmol/L VBG O2 Saturation 90 H (70-75) % VBG Base Excess -2.0 L (0-4) mmol/L Sodium (137-145) mmol/L Potassium (3.4-5.1) mmol/L Chloride (98-107) mmol/L Carbon Dioxide (22-32) mmol/L BUN (9-20) mg/dL Creatinine (0.66-1.25) mg/dL Estimated GFR (>60) mL/min BUN/Creatinine Ratio (6-22) Glucose (80-110) mg/dL Hemoglobin A1c (4.0-6.0) % Calcium (8.4-10.2) mg/dL Magnesium (1.6-2.3) mg/dL Total Bilirubin (0.2-1.3) mg/dL AST (17-59) IU/L ALT (<50) IU/L Alkaline Phosphatase (38-126) U/L Total Creatine Kinase (55-170) U/L CK-MB (CK-2) (<2.37) ng/mL CK-MB (CK-2) Rel Index (1.5-5.0) % Troponin I (0.01-0.034) ng/mL Total Protein (6.3-8.2) g/dL Albumin (3.5-5.0) g/dL Globulin (1.7-4.1) g/dL Albumin/Globulin Ratio (1.0-2.8) Urine RBC 1-5/hpf (0-5/HPF) Urine WBC None seen (0-5/HPF) Urine Bacteria None seen (None) Ur Culture Indicated? Cult not indicated Point of Care Testing Glucose POC 328 Urine Dip Bedside Urine Glucose 1000 mg/dl Bedside Urine Bilirubin - Negative Bedside Urine Ketone +/- 5 Urine Specific [place] 1.015 Bedside Urine Occult Blood +/- Bedside Urine pH 6.0 Bedside Urine Protein - Negative Bedside Urine Urobilinogen +/- 1mg Bedside Urine Nitrite - Negative Bedside Urine Leukocytes - Negative Esterase MDM Narrative Medical decision making narrative: Patient with reassuring history and physical. He is largely quite asymptomatic, A1c is significantly elevated. He is given fluids and 5 units of insulin subQ, blood sugars rechecked and down into the 300s. He is asymptomatic, tolerating orals and already has follow-up with his PCP arranged. Prescription for metformin sent to his pharmacy. Return precautions discussed and questions have been answered to his apparent satisfaction Discharge Plan Departure Patient Disposition: Home Clinical Impression: Type 2 diabetes mellitus Instructions: DI for Diabetes Type 2 Activity Restrictions/Additional Instructions: *You have been diagnosed with [high blood sugar and findings most consistent with type 2 diabetes. *What to do: *Please continue to take your regular medications as directed. [ x New medication prescriptions sent to your pharmacy: [[facility] ] [ ] New medication written as a paper prescription [ ] No new medications given *Please follow up with your primary care provider in 2-3 days, call for an appointment. Let them know you were seen in the Emergency Department and that we ask that you be seen in follow up. We will electronically transmit a record of today's note if your PCP is in our system *Return to Emergency Department if you should have any new, worsening or concerning symptoms, such as [fever greater than 101 F, shaking chills, worsening pain, persistent vomiting or other bothersome symptoms] Prescriptions: New metformin 500 mg tablet 500 mg PO BID Qty: 30 0RF No Action doxycycline hyclate 100 mg tablet 100 mg PO BID Qty: 20 0RF clonazepam [Klonopin] 0.5 mg tablet 0.5 mg PO TID PRN (Reason: anxiety) Qty: 5 0RF Referrals: Jadon Cottrell DO [Primary Care Provider] -
[2021-05-22] MEDS: LACTATED RINGERS 1,000 ML 1000 ML IV (19:12)
[2021-05-22 19:14] LABS: Alanine Aminotransferase 38 IU/L (<50); Albumin 4.4 g/dL (3.5-5.0); Albumin Globulin Ratio 1.5 (1.0-2.8); Alkaline Phosphatase 213 U/L (38-126); Aspartate Aminotransferase 27 IU/L (17-59); Bilirubin Total 0.6 mg/dL (0.2-1.3); Blood Urea Nitrogen 27 mg/dL (9-20); Calcium 9.7 mg/dL (8.4-10.2); Carbon Dioxide 21 mmol/L (22-32); Chloride 98 mmol/L (98-107); Creatine Kinase 148 U/L (55-170); Estimated Glomerular Filt Rate > 60.0 mL/min (>60); HEMOLYSIS 32 (0-50); Magnesium 2.1 mg/dL (1.6-2.3); Potassium 4.7 mmol/L (3.4-5.1); Sodium 129 mmol/L (137-145); Total Protein 7.4 g/dL (6.3-8.2)
[2021-05-22 19:16] LABS: Hemoglobin A1C% w Est Avg Glu 13.6 % (4.0-6.0)
[2021-05-22 19:25] LABS: Glucose 577 mg/dL (80-110)
[2021-05-22 19:28] LABS: CKMB % Relative Index 1.5 % (1.5-5.0); Creatine Kinase MB 2.25 ng/mL (<2.37); Troponin I < 0.012 ng/mL (0.01-0.034)
[2021-05-22 19:30] LABS: HCO3 VBG 23 mmol/L (23-28); Oxygen Saturation VBG 90 % (70-75); PCO2 VBG 37.4 mmHg (45-50); PO2 VBG 58 mmHg (35-45); Total CO2 VBG 24 mmol/L (24-29)
[2021-05-22] MEDS: INSULIN REGULAR 100 UNIT/ML 3 ML VIAL SUBCUT (19:49)
[2021-05-22 19:57] LABS: RBC Urine 1-5/HPF (0-5/HPF)
[2021-05-22 19:58] LABS: Bacteria Urine None Seen; Culture Indicated Urine Cult Not Indicated; WBC Urine None Seen (0-5/HPF)
[2021-05-22 20:38] VITALS: BP 143/83; PULSE 72; RESP 16; TEMP 36.9; O2SAT 98
== END 2021-05-22 20:39 | disposition home or self-care (01) ==
PROVIDERS: Emergency Provider Emergency Medicine; PCP Student in an Organized Health Care Education/Training Program
DX: E11.65 Type 2 diabetes mellitus with hyperglycemia (principal); R03.0 Elevated blood-pressure reading, without diagnosis of hypertension; Z79.84 Long term (current) use of oral hypoglycemic drugs
CPT/HCPCS: 36415; 80053; 81003; 81015; 82550; 82553; 82805; 82962; 83036; 83735; 84484; 85025; 93005; 96360; 96372; 99284

== ENCOUNTER 2022-10-12 14:25 | Emergency (ER) | payer MEDICARE, MEDICAID, SELFPAY ==
[2022-10-12 14:36] VITALS: BP 150/69; PULSE 84; RESP 18; TEMP 36.5; O2SAT 98; BMI 27.9
--- NOTE | 2022-10-12 16:28 | ED.WOUNDLAC ---
HPI - Wound/Laceration General Chief Complaint: Wound/Laceration Stated Complaint: thinks he has a staph infection Time Seen by Provider: 10/12/22 15:46 Source: patient Mode of arrival: Ambulatory History of Present Illness HPI narrative: 67-year-old smoker with history of diabetes and prior skin infections presents with a friend, both complaining of infected wounds that are reminiscent of prior staph infections. He has about a quarter-sized lesion on his scalp and a few other excoriated, painful red spots on his arms. He denies any systemic complaints such as fever, chills nor nausea, vomiting or diarrhea. He is not dizzy, weak or lightheaded. Related Data Previous Rx's Medication Instructions Recorded clonazepam 0.5 mg tablet (Klonopin) 0.5 mg PO TID PRN anxiety #5 tabs 03/18/18 doxycycline hyclate 100 mg tablet 100 mg PO BID #20 tabs 11/22/19 metformin 500 mg tablet 500 mg PO BID #30 tabs 05/22/21 doxycycline hyclate 100 mg tablet 100 mg PO BID #20 tabs 10/12/22 Allergies Allergy/AdvReac Type Severity Reaction Status Date / Time No Known Drug Allergies Allergy Verified 10/12/22 14:43 Review of Systems Review of Systems Narrative: GENERAL: Denies chills, fatigue, malaise, fever, sweats. HEENT: Denies sinus pain, ear pain, sore throat, difficulty swallowing, dizziness. RESPIRATORY: Denies dyspnea, cough, wheezing, hemoptysis, sputum. CARDIOVASCULAR: Denies chest pain, palpitations, orthopnea, edema, GASTROINTESTINAL: Denies nausea, vomiting, abdominal pain, diarrhea, constipation, melena. : Denies dysuria, frequency, incontinence, hematuria, urinary retention. MUSCULOSKELETAL: denies weakness, joint pain, or bony pain SKIN: See HPI NEUROLOGIC: Denies weakness, headache, numbness, change in speech, confusion, seizures, incoordination. PSYCHIATRIC: No concerning psychosocial issues. 12 point review of systems is negative except for those stated above Patient History Medical History BPH (benign prostatic hyperplasia) Mood disorder Schizophrenia Social History Smoking Status: Current every day smoker Smoking Status: Current every day smoker tobacco type: pipe and vaping alcohol intake frequency: a few times a week Substance Use Type: does not use Exam Narrative Exam Narrative: GEN: AOx3 and in minimal distress, appears stated age EYES: Pupils are equal, round, and reactive to light and accommodation. Extraoccular muscles are intact bilaterally. There is no subconjunctival hemorrhage or exudate. CHEST: Lungs are clear to auscultation bilaterally and free of wheezes, rales, or rhonchi. Heart rate is regular rhythm, there are no murmurs, clicks, rubs, or gallops. There is no chest wall tenderness. ABD: Abdomen is soft and nontender. There is no guarding or rebound. Bowel sounds are normal in all 4 quadrants. There is no mass or organomegaly. EXT: Full painless ROM of all extremities with no loss of sensation or strength. SKIN: 2.5 cm slightly excoriated lesion on scalp with minimal surrounding erythema, no induration, fluctuance or drainage. Few other small similar appearing lesions on arm, again no induration, fluctuance, no lymphangitis, minimal surrounding erythema Initial Vital Signs Initial Vital Signs: Vital Signs Temperature 97.7 F 10/12/22 14:36 Pulse Rate 84 10/12/22 14:36 Respiratory Rate 18 10/12/22 14:36 Blood Pressure 150/69 H 10/12/22 14:36 Pulse Oximetry 98 10/12/22 14:36 Oxygen Delivery Method Room Air 10/12/22 14:36 Course Vital Signs Vital signs: Vital Signs - 8 hr 10/12/22 14:36 Temperature 97.7 F Pulse Rate 84 Respiratory Rate 18 Blood Pressure 150/69 H Pulse Oximetry 98 Oxygen Delivery Method Room Air MDM - Wound/Laceration MDM Narrative Medical decision making narrative: [67] year old patient presents with painful skin lesions consistent with prior skin infections Multiple etiologies for patient's symptoms considered including, but not limited to: [Abscess versus cellulitis versus infected wound] Prior Charts reviewed in our EMR Primary Historian: patient Diabetic smoker with history of skin infections presents with a friend, both of which have minimally draining, painful skin lesions, there are no systemic findings, nothing to drain Patient's symptoms improved over duration of stay with above-stated therapies. Findings and discharge diagnosis discussed with patient/family followed by verbalization of understanding Return precautions discussed with patient/family whom verbalize understanding of diagnosis and plan Discharge Plan Departure Patient Disposition: Home Clinical Impression: Abscess of skin Instructions: DI for Staph Infection Activity Restrictions/Additional Instructions: *You have been diagnosed with [skin infection most likely due to Staph] *What to do: *Please continue to take your regular medications as directed. [x ] New medication prescriptions sent to your pharmacy: [[facility] ] [ ] New medication written as a paper prescription [ ] No new medications given *Please follow up with your primary care provider in 2-3 days, call for an appointment. Let them know you were seen in the Emergency Department and that we ask that you be seen in follow up. We will electronically transmit a record of today's note if your PCP is in our system *Return to Emergency Department if you should have any new, worsening or concerning symptoms, such as [fever greater than 101 F, shaking chills, worsening pain, persistent vomiting or other bothersome symptoms] Prescriptions: New doxycycline hyclate 100 mg tablet 100 mg PO BID Qty: 20 0RF No Action doxycycline hyclate 100 mg tablet 100 mg PO BID Qty: 20 0RF metformin 500 mg tablet 500 mg PO BID Qty: 30 0RF clonazepam [Klonopin] 0.5 mg tablet 0.5 mg PO TID PRN (Reason: anxiety) Qty: 5 0RF Stand Alone Forms: Patient Portal/API
[2022-10-12 16:44] VITALS: BP 123/57; PULSE 78; RESP 16; O2SAT 95
== END 2022-10-12 16:51 | disposition home or self-care (01) ==
PROVIDERS: Emergency Provider Emergency Medicine
DX: L02.414 Cutaneous abscess of left upper limb (principal); L02.413 Cutaneous abscess of right upper limb
CPT/HCPCS: 99281